=== PATIENT | male | born 1950 ===

== ENCOUNTER 2017-04-25 11:34 | Inpatient (IN) | payer BC, MEDICARE ==
[2017-04-25] MEDS ORDERED: Ticagrelor* 90 MG TAB PO ONE ×2 (11:38→13:11)
[2017-04-25] MEDS ORDERED: Heparin VIAL(*) 5000 UNITS/ML VIAL (FIVE THOUSAND) ONE (11:39)
[2017-04-25] MEDS ORDERED: Heparin for STEMI(*) 5,000 UNITS/ML 1 ML VIAL IV ONE (11:42)
[2017-04-25] MEDS ORDERED: Morphine INJ* 4 MG/ML 1 ML SYRINGE IV ONE (11:46)
[2017-04-25] MEDS ORDERED: Morphine INJ* 4 MG/ML 1 ML SYRINGE ONE (11:47)
[2017-04-25 11:52] LABS: Hematocrit 43 % (42-52); Hemoglobin 14.5 g/dl (14.0-18.0); Mean Corpuscular HGB Conc 34 g/dl (31-36); Mean Corpuscular Hemoglobin 31 pg (27-31); Mean Corpuscular Volume 91 fL (80-94); Mean Platelet Volume 10 um3 (7.4-10.4); Red Blood Count 4.71 10^6/ul (4.0-5.4); Red Cell Distribution Width 13 % (10.5-15); White Blood Count 13.3 10^3/ul (3.5-10.8)
[2017-04-25] MEDS ORDERED: Lidocaine 1% INJ* 10 MG/ML 30 ML SDV ONE (12:03)
[2017-04-25] MEDS ORDERED: fentaNYL* 50 MCG/ML 2 ML VIAL (100 MCG VIAL) ONE ×2 (12:03→12:41)
[2017-04-25] MEDS ORDERED: Heparin(*) 1000 UNIT/ML 10 ML VIAL CATH LAB IV ONE (12:03)
[2017-04-25] MEDS ORDERED: VERAPAMIL 2.5 MG/ML 4 ML VIAL ONE (12:03)
[2017-04-25] MEDS ORDERED: Midazolam* 1 MG/ML 5 ML VIAL (5 MG) ONE (12:03)
[2017-04-25] MEDS ORDERED: nitroGLYCERIN DRIP* 250 ML ONE (12:03)
[2017-04-25] MEDS ORDERED: Heparin 2 UNITS/ML IVPREMIX* 2,000 ML IV ONE (12:03)
[2017-04-25] MEDS ORDERED: Iohexol 350 (CONTRAST) 200 ML MDV IV ONE (12:04)
[2017-04-25 12:08] LABS: Albumin 3.8 g/dL (3.2-5.2); BUN/Creatinine Ratio 12.4 (8-20); Calcium 8.4 mg/dL (8.6-10.3); EGFR African American 91.2 (>60); EGFR Non-African American 70.9 (>60); Globulin 2.9 g/dL (2-4); Potassium 3.8 mmol/L (3.5-5.0); Total Bilirubin 0.4 mg/dL (0.2-1.0); Total Protein 6.7 g/dL (6.4-8.9)
[2017-04-25 12:13] LABS: Troponin I 0.03 ng/mL (<0.04)
[2017-04-25 12:15] LABS: Urine Bilirubin Negative (Negative); Urine Glucose 3+(>=500 mg/dL) (Negative); Urine Nitrite Negative (Negative)
--- NOTE | 2017-04-25 12:55 | RAD ---
Indication: Chest pain. Single frontal view of the chest performed at 1147 hours was reviewed. No prior study is available for comparison. No mediastinal shift is noted. Heart is of normal size and configuration. Lung george appear clear. IMPRESSION: NO ACTIVE CARDIOPULMONARY DISEASE IS NOTED.
[2017-04-25] MEDS ORDERED: Nitroglycerin TAB 0.4 MG* 0.4 MG TAB SL PRN (13:25)
[2017-04-25] MEDS ORDERED: oxyCODONE/Acetamin 5/325 MG* TAB PO PRN (13:28)
[2017-04-25] MEDS ORDERED: Acetaminophen TAB* 325 MG PO PRN (13:28)
[2017-04-25] MEDS ORDERED: NS 0.9% 1000 ML* 1,000 ML IV SCH (13:30)
[2017-04-25] MEDS ORDERED: Dextrose 50% Syringe 50 ML* 25 GM/50 ML SYRINGE IV PUSH PRN (15:10)
[2017-04-25] MEDS: Metoprolol Tartrate TAB* 25 MG PO SCH ×2 (15:14→20:03)
--- NOTE | 2017-04-25 16:52 | HP ---
CC: Dr. Carter; Dr. Sylwia Jean HISTORY AND PHYSICAL: DATE OF ADMISSION: 04/25/17 PRIMARY CARE PHYSICIAN: Dr. Carter in [place]. HISTORY OF PRESENT ILLNESS: A 67-year-old diabetic, presenting to the ER with acute inferior wall S T-elevation infarct. He has no previous cardiac history. In retrospect, yesterday, while walking, he had very mild angin a, lasting about 20 minutes. It resolved with rest. Today, at around 10:30 in the morning, he star devi to have severe chest pain with radiation into the left arm accompanied by shortness of breath, h e presented to the ER. EKG at 11:38 hours showed sinus rhythm with acute inferior wall ST-elevation infarct with ST elevation in II, III, and aVF with reciprocal ST depression in aVL, V1 through V2. He underwent emergent catheterization. Risk factors for coronary disease include diabetes, hypertension, and hyperlipidemia. He has a hist ory of GI side effects from Crestor and Lipitor, unknown doses. His A1c last time was 7. PAST MEDICAL HISTORY: Diabetes for 15 years without complications, hypertension, hyperlipidemia. PREHOSPITAL MEDICATIONS: 1. Glipizide 10 mg daily. 2. Metformin 500 mg b.i.d. 3. Lisinopril and hydrochlorothiazide 20/25 daily. 4. Nexium 40 mg daily. 5. Aspirin 81 mg daily. ALLERGIES: ZETIA. FAMILY HISTORY: Positive for coronary disease in his father. SOCIAL HISTORY: He smokes a rare cigar. REVIEW OF SYSTEMS: General: No weight loss. No fever. HEENT: He has seasonal allergies. 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 GI: No history of peptic ulcer disease or bleeding. Circulatory: No cl audication. Remainder all negative. PHYSICAL EXAMINATION GENERAL: When seen in the ER, he was complaining of chest pain, was in moderate distress. VITAL SIGNS: Blood pressure 138/87, heart rate 72, no ectopy. HEENT: Normal without xanthelasma, scleral injection, or jaundice. EOMs normal. Cranial nerves gerard ssly intact. NECK: JVP and carotids normal. No thyromegaly. LUNGS: Clear to percussion and auscultation. CARDIAC: RV and apex not palpable. Normal S1, S2. No gallop, murmur, or rub. ABDOMEN: Soft, nontender. No bruit. Aorta and liver not palpable. Radial, femoral, and pedal pul ses are all palpable. EXTREMITIES: No cyanosis, clubbing, or edema. PSYCH: Appropriately anxious. SKIN: Warm and perfused. DIAGNOSTIC STUDIES/LAB DATA: EKG as above. CBC notable only for elevated white count, sodium 132, potassium 3.8, creatinine 1.05. Blood sugar 320, lactic acid 3.6. BNP normal at 20. First troponin 0.03. LDL high at 158, on no statin. IMPRESSION: 1. Acute inferior wall ST-elevation infarct. He underwent emergent catheterization for his Killip class I infarct. 2. Diabetes, type 2 by history, uncontrolled. 3. Hypertension, medically treated. 4. Dyslipidemia, with a history of questionable statin intolerance and not at target. 5. Allergy to ZETIA. [id number]/[facility] #: [id number]
--- NOTE | 2017-04-25 17:44 | ED ---
Doris Walter Auryana, scribed for Dylan Jacob MD on 04/25/17 at 1141 . HPI Chest Pain - HPI Summary HPI Summary: 67 year old male ARLETHA with chest pain starting at 10:30 AM today just before breakfast. Patient also had dizziness, diaphoresis, and nausea-given Zofran en route. Patient reports that the pain was a 10/10 - now 5/10. He also has left arm pain. Prior to EMS arrival, patient self-administered 4x baby ASA and en route patient also received 2x 4 mg morphine. She denies SOB or any nausea now. PMHx is significant for HTN, DM, and HLD. No history of OR. - History of Current Complaint Chief Complaint: EDChestPainROMI Time Seen by Provider: 04/25/17 11:41 Hx Obtained From: Patient, EMS Onset/Duration: Started Hours Ago, Still Present Time of Onset: 10:30 Timing: Constant Initial Severity: Severe Current Severity: Moderate Pain Intensity: 10 - now 5/10 Pain Scale Used: 0-10 Numeric Chest Pain Location: Diffuse Chest Pain Radiates: Yes Chest Pain Radiates To:: Arm - left arm Alleviating Factor(s): Medication - CIVIL ENGINEERING TECHNICIAN ASA, EMS Tx Associated Signs and Symptoms: Positive: Chest Pain, Dizziness, Diaphoresis, Nausea - now resolved, Other: - left arm pain. Negative: Shortness of Breath Related History: Similar Episode/Dx as: - no history of OR - Allergy/Home Medications Allergies/Adverse Reactions: Allergies Allergy/AdvReac Type Severity Reaction Status Date / Time Ezetimibe [From Zetia] Allergy Diarrhea Verified 04/25/17 11:50 Home Medications: Home Medications Aspirin [Aspirin Adult Low Dose 81 MG] 81 mg PO DAILY 04/25/17 [History Confirmed 04/25/17] Esomeprazole Magnesium [Nexium] 40 mg PO DAILY 04/25/17 [History Confirmed 04/25] Lisinopril/HCTZ 20(NF) [Zestoretic 20(NF)] 1 tab PO DAILY 04/25/17 [ History Confirmed 04/25/17] glipiZIDE TAB* [Glucotrol TAB*] 10 mg PO DAILY 04/25/17 [History Confirmed 04/25] metFORMIN* 500 mg PO BID 04/25/17 [History Confirmed 04/25/17] PMH/Surg Hx/FS Hx/Imm Hx Endocrine/Hematology History: Reports: Hx Diabetes Cardiovascular History: Reports: Hx Hypercholesterolemia, Hx Hypertension Infectious Disease History: Denies: Traveled Outside the [place] in Last 30 Days - Family History Known Family History: Positive: Hypertension, Diabetes - Social History Occupation: Employed Full-time Lives: With Family Hx Substance Use: No Substance Use Type: Reports: None Hx Tobacco Use: No Smoking Status (MU): Never Smoked Tobacco Review of Systems Negative: Fever, Chills Eyes: Negative ENT: Negative Positive: Chest Pain Respiratory: Negative Negative: Shortness Of Breath Gastrointestinal: Negative Positive: Nausea - now resolved Genitourinary: Negative Musculoskeletal: Negative Skin: Negative Neurological: Negative Psychological: Normal All Other Systems Reviewed And Are Negative: Yes Physical Exam - Summary Physical Exam Summary: VITAL SIGNS: Reviewed. GENERAL: Patient is a well-developed and nourished male who is lying comfortable in the stretcher. Patient is not in any acute respiratory distress. HEAD AND FACE: No signs of trauma. No ecchymosis, hematomas or skull depressions. No sinus tenderness. EYES: PERRLA, EOMI x 2, No injected conjunctiva, no nystagmus. EARS: Hearing grossly intact. Ear canals and tympanic membranes are within normal limits. MOUTH: Oropharynx within normal limits. NECK: Supple, trachea is midline, no adenopathy, no JVD, no carotid bruit, no c- spine tenderness, neck with full ROM. CHEST: Symmetric, no tenderness at palpation LUNGS: Clear to auscultation bilaterally. No wheezing or crackles. CVS: Regular rate and rhythm, S1 and S2 present, no murmurs or gallops appreciated. ABDOMEN: Soft, non-tender. No signs of distention. No rebound no guarding, and no masses palpated. Bowel sounds are normal. EXTREMITIES: FROM in all major joints, no edema, no cyanosis or clubbing. NEURO: Alert and oriented x 3. No acute neurological deficits. Speech is normal and follows commands. SKIN: Diaphoretic and clammy. Triage Information Reviewed: Yes Vital Signs On Initial Exam: Initial Vitals Temp Pulse Resp BP Pulse Ox 97.3 F 72 13 138/87 100 04/25/17 11:46 04/25/17 11:46 04/25/17 11:46 04/25/17 11:46 04/25/17 11:46 Vital Signs Reviewed: Yes Diagnostics - Vital Signs Vital Signs Temp Pulse Resp BP Pulse Ox 04/25/17 12:01 80 13 100 04/25/17 12:00 76 12 100 04/25/17 11:55 77 9 135/75 100 04/25/17 11:54 80 11 100 04/25/17 11:50 97.3 F 82 15 136/89 100 04/25/17 11:49 14 04/25/17 11:46 97.3 F 72 13 138/87 100 - Laboratory Lab Results: Lab Results 04/25/17 04/25/17 04/25/17 Range/Units 11:40 11:40 11:40 WBC 13.3 H (3.5-10.8) 10^3/ul RBC 4.71 (4.0-5.4) 10^6/ul Hgb 14.5 (14.0-18.0) g/dl Hct 43 (42-52) % MCV 91 (80-94) fL MCH 31 (27-31) pg MCHC 34 (31-36) g/dl RDW 13 (10.5-15) % Plt Count 214 (150-450) 10^3/ul MPV 10 (7.4-10.4) um3 Neut % (Auto) 80.6 (38-83) % Lymph % (Auto) 10.8 L (25-47) % [place] % (Auto) 7.8 (1-9) % Eos % (Auto) 0.3 (0-6) % Baso % (Auto) 0.5 (0-2) % Absolute Neuts (auto) 10.7 H (1.5-7.7) 10^3/ul Absolute Lymphs (auto) 1.4 (1.0-4.8) 10^3/ul Absolute Monos (auto) 1.0 H (0-0.8) 10^3/ul Absolute Eos (auto) 0 (0-0.6) 10^3/ul Absolute Basos (auto) 0.1 (0-0.2) 10^3/ul Absolute Nucleated RBC 0 10^3/ul Nucleated RBC % 0 INR (Anticoag Therapy) 0.90 (0.89-1.11) APTT 23.8 L (26.0-36.3) seconds Sodium 132 L (133-145) mmol/L Potassium 3.8 (3.5-5.0) mmol/L Chloride 102 (101-111) mmol/L Carbon Dioxide 20 L (22-32) mmol/L Anion Gap 10 (2-11) mmol/L BUN 13 (6-24) mg/dL Creatinine 1.05 (0.67-1.17) mg/dL Est GFR ( Amer) 91.2 (>60) Est GFR (Non-Af Amer) 70.9 (>60) BUN/Creatinine Ratio 12.4 (8-20) Glucose 320 H (70-100) mg/dL Lactic Acid (0.5-2.0) mmol/L Calcium 8.4 L (8.6-10.3) mg/dL Total Bilirubin 0.40 (0.2-1.0) mg/dL AST 41 H (13-39) U/L ALT 39 (7-52) U/L Alkaline Phosphatase 49 (34-104) U/L Total Creatine Kinase 66 (10-223) U/L CK-MB (CK-2) 1.8 (0.6-6.3) ng/mL Myoglobin 26.8 (17.4-105.7) ng/mL Troponin I 0.03 (<0.04) ng/mL B-Natriuretic Peptide ( - 100) pg/mL Total Protein 6.7 (6.4-8.9) g/dL Albumin 3.8 (3.2-5.2) g/dL Globulin 2.9 (2-4) g/dL Albumin/Globulin Ratio 1.3 (1-3) LDL Cholesterol Direct 158 mg/dL Urine Color Urine Appearance Urine pH (5-9) Ur Specific [place] (1.010-1.030) Urine Protein (Negative) Urine Ketones (Negative) Urine Blood (Negative) Urine Nitrate (Negative) Urine Bilirubin (Negative) Urine Urobilinogen (Negative) Ur Leukocyte Esterase (Negative) Urine Glucose (Negative) Blood Type Antibody Screen 04/25/17 04/25/17 04/25/17 Range/Units 11:40 11:40 11:40 WBC (3.5-10.8) 10^3/ul RBC (4.0-5.4) 10^6/ul Hgb (14.0-18.0) g/dl Hct (42-52) % MCV (80-94) fL MCH (27-31) pg MCHC (31-36) g/dl RDW (10.5-15) % Plt Count (150-450) 10^3/ul MPV (7.4-10.4) um3 Neut % (Auto) (38-83) % Lymph % (Auto) (25-47) % [place] % (Auto) (1-9) % Eos % (Auto) (0-6) % Baso % (Auto) (0-2) % Absolute Neuts (auto) (1.5-7.7) 10^3/ul Absolute Lymphs (auto) (1.0-4.8) 10^3/ul Absolute Monos (auto) (0-0.8) 10^3/ul Absolute Eos (auto) (0-0.6) 10^3/ul Absolute Basos (auto) (0-0.2) 10^3/ul Absolute Nucleated RBC 10^3/ul Nucleated RBC % INR (Anticoag Therapy) (0.89-1.11) APTT (26.0-36.3) seconds Sodium (133-145) mmol/L Potassium (3.5-5.0) mmol/L Chloride (101-111) mmol/L Carbon Dioxide (22-32) mmol/L Anion Gap (2-11) mmol/L BUN (6-24) mg/dL Creatinine (0.67-1.17) mg/dL Est GFR ( Amer) (>60) Est GFR (Non-Af Amer) (>60) BUN/Creatinine Ratio (8-20) Glucose (70-100) mg/dL Lactic Acid 3.6 H* (0.5-2.0) mmol/L Calcium (8.6-10.3) mg/dL Total Bilirubin (0.2-1.0) mg/dL AST (13-39) U/L ALT (7-52) U/L Alkaline Phosphatase (34-104) U/L Total Creatine Kinase (10-223) U/L CK-MB (CK-2) (0.6-6.3) ng/mL Myoglobin (17.4-105.7) ng/mL Troponin I (<0.04) ng/mL B-Natriuretic Peptide 20 ( - 100) pg/mL Total Protein (6.4-8.9) g/dL Albumin (3.2-5.2) g/dL Globulin (2-4) g/dL Albumin/Globulin Ratio (1-3) LDL Cholesterol Direct mg/dL Urine Color Urine Appearance Urine pH (5-9) Ur Specific [place] (1.010-1.030) Urine Protein (Negative) Urine Ketones (Negative) Urine Blood (Negative) Urine Nitrate (Negative) Urine Bilirubin (Negative) Urine Urobilinogen (Negative) Ur Leukocyte Esterase (Negative) Urine Glucose (Negative) Blood Type O Positive Antibody Screen Negative 04/25/17 Range/Units 12:02 WBC (3.5-10.8) 10^3/ul RBC (4.0-5.4) 10^6/ul Hgb (14.0-18.0) g/dl Hct (42-52) % MCV (80-94) fL MCH (27-31) pg MCHC (31-36) g/dl RDW (10.5-15) % Plt Count (150-450) 10^3/ul MPV (7.4-10.4) um3 Neut % (Auto) (38-83) % Lymph % (Auto) (25-47) % [place] % (Auto) (1-9) % Eos % (Auto) (0-6) % Baso % (Auto) (0-2) % Absolute Neuts (auto) (1.5-7.7) 10^3/ul Absolute Lymphs (auto) (1.0-4.8) 10^3/ul Absolute Monos (auto) (0-0.8) 10^3/ul Absolute Eos (auto) (0-0.6) 10^3/ul Absolute Basos (auto) (0-0.2) 10^3/ul Absolute Nucleated RBC 10^3/ul Nucleated RBC % INR (Anticoag Therapy) (0.89-1.11) APTT (26.0-36.3) seconds Sodium (133-145) mmol/L Potassium (3.5-5.0) mmol/L Chloride (101-111) mmol/L Carbon Dioxide (22-32) mmol/L Anion Gap (2-11) mmol/L BUN (6-24) mg/dL Creatinine (0.67-1.17) mg/dL Est GFR ( Amer) (>60) Est GFR (Non-Af Amer) (>60) BUN/Creatinine Ratio (8-20) Glucose (70-100) mg/dL Lactic Acid (0.5-2.0) mmol/L Calcium (8.6-10.3) mg/dL Total Bilirubin (0.2-1.0) mg/dL AST (13-39) U/L ALT (7-52) U/L Alkaline Phosphatase (34-104) U/L Total Creatine Kinase (10-223) U/L CK-MB (CK-2) (0.6-6.3) ng/mL Myoglobin (17.4-105.7) ng/mL Troponin I (<0.04) ng/mL B-Natriuretic Peptide ( - 100) pg/mL Total Protein (6.4-8.9) g/dL Albumin (3.2-5.2) g/dL Globulin (2-4) g/dL Albumin/Globulin Ratio (1-3) LDL Cholesterol Direct mg/dL Urine Color Straw Urine Appearance Clear Urine pH 7.0 (5-9) Ur Specific [place] 1.009 L (1.010-1.030) Urine Protein Negative (Negative) Urine Ketones Trace H (Negative) Urine Blood Negative (Negative) Urine Nitrate Negative (Negative) Urine Bilirubin Negative (Negative) Urine Urobilinogen Negative (Negative) Ur Leukocyte Esterase Negative (Negative) Urine Glucose 3+(>=500 mg/dl) H (Negative) Blood Type Antibody Screen Result Diagrams: 04/25/17 11:40 04/25/17 11:40 Lab Statement: Any lab studies that have been ordered have been reviewed, and results considered in the medical decision making process. - Radiology CXR Xray Interpretation: No Acute Changes Radiology Interpretation Completed By: Radiologist - EKG 11:38 EKG Interpretation: ST ELEVATION IN LEADS II,III, and aVf Chest Pain Course/Dx - Course Assessment/Plan: 67 year old male BIBA with chest pain starting at 10:30 AM today just before breakfast. Patient also had dizziness, diaphoresis, and nausea -given Zofran en route. Patient reports that the pain was a 10/10 - now 5/10. He also has left arm pain. Prior to EMS arrival, patient self-administered 4x baby ASA and en route patient also received 2x 4 mg morphine. She denies SOB or any nausea now. PMHx is significant for HTN, DM, and HLD. No history of OR. In the ED course an IV access was obtained. Patient was placed in a sailmaker. Patient was started with IV fluids. He was given an additional dose of Morphine for pain. Labs within normal limits except for WBCs 13.3, NA 132, glucose 320, troponin 0.03. EKG shows an STEMI in leads II, II, aVF. I discussed the case with Dr. 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 Patient was given Heparin. He is hemodynamically stable and A+O x 3. - Chest Pain Differential Diagnosis/HQI/PQRI: Acute OR, ACS, Angina, CHF, Chest Wall, GI Disease, Lower Respiratory Infection - Diagnoses Provider Diagnoses: Myocardial infarction - Critical Care Time Critical Care Time: 30-74 min Discharge - Discharge Plan Condition: Stable Disposition: ADMITTED TO [facility] The documentation as recorded by the Doris worley Auryana accurately reflects the service I personally performed and the decisions made by , Dylan Jacob MD.
[2017-04-25] MEDS: Atorvastatin* 80 MG TAB PO SCH (18:09)
[2017-04-25] MEDS: Insulin LISPRO* 1 UNITS UNIT SUBCUT SCH ×2 (18:10→22:02)
[2017-04-25 18:41] LABS: Troponin I 43.45 ng/mL (<0.04)
[2017-04-25] MEDS: Ticagrelor* 90 MG TAB PO SCH (20:03)
[2017-04-25] MEDS ORDERED: Zolpidem TAB* 5 MG PO PRN (21:00)
[2017-04-25 21:50] LABS: Creatine Kinase 1524 U/L (10-223); Glucose 197 mg/dL (70-100)
[2017-04-25 21:53] LABS: Troponin I > 74.00 ng/mL (<0.04)
--- NOTE | 2017-04-25 23:25 | CONS ---
CC: MICAHEL Emmanuel; Sylwia Jean MD * CONSULTATION REPORT: DATE OF CONSULTATION: 04/25/17 REQUESTING PHYSICIAN: Sylwia Jean MD PRIMARY CARE PHYSICIAN: MICHAEL Emmanuel REASON FOR CONSULT: Diabetes management. CHIEF COMPLAINT: Chest pain. HISTORY OF PRESENT ILLNESS: The patient is a 67-year-old gentleman who says that he went out to breakfast today, had 2 eggs and ham and hash browns, and then started driving home in his truck when he felt what he thought was heartburn. He said it really was like heaviness in the center of his chest. He went home and felt worse. The pain then went to his left arm. He got dizzy. Then, the pain increased to where it felt like an elephant was on his chest and he described it as 50/10 in severity. He had slight nausea. No vomiting. He had some shortness of breath, but he was panting. He really was not sure if it was from anxiety or being short of breath. At home, when he called the EMS, they told him to take 4 baby aspirins and chew them at home. The patient did have pain in his chest until he was brought up to having the cardiac catheterization. He says his sugars at home by the way averaged at 150. PAST MEDICAL HISTORY: Significant for hypertension, GERD, diabetes, and hyperlipidemia. PAST SURGICAL HISTORY: Significant for cholecystectomy in June 2016. ALLERGIES: He has an allergy to ZETIA. CURRENT MEDICATION: At home were: 1. Lisinopril, hydrochlorothiazide 20/25 one tablet daily. 2. Nexium 40 mg daily. 3. Metformin 500 mg twice daily. 4. Aspirin 81 mg daily. 5. Glipizide 10 mg daily. SOCIAL HISTORY: He smokes occasional cigar and a beer a day. No recreational drug use. 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 He is . He has 5 children. His , Elsa Meraz, is his healthcare proxy. FAMILY HISTORY: Mother at 89 of a blockage in her intestines. Father at 67 of diabetes, heart failure. He had an CO at age 65. Five sisters, one of an CO at age 77. REVIEW OF SYSTEMS: A 14-point review of systems was completed with the patient. All pertinent positives and negatives are in the history of present illness, otherwise it is negative. PHYSICAL EXAM: A pleasant gentleman, lying in bed, in no acute distress. Vital Signs: Temperature 98.7 degrees, heart rate 87 beats a minute, respiratory rate 20 breaths a minute, pulse ox 95%, blood pressure 142/121. HEENT: Normocephalic, atraumatic. Pupils are equal, round, and reactive to light. Moist mucous membranes. Neck: Supple. No JVD, bruits, palpable thyroid or lymphadenopathy. Chest: Clear to auscultation and percussion bilaterally. Cardiovascular: S1, S2 appreciated. Regular rate and rhythm. Abdomen: Positive bowel sounds in all 4 quadrants. Soft, nontender, and nondistended. Extremities: No cyanosis, clubbing, or edema. +2 peripheral pulses bilaterally. Neuro: Alert and oriented x3. Moves all extremities. Skin: No rash or abnormalities. DIAGNOSTIC STUDIES/LAB DATA: White count 13.3, hemoglobin 14.5, hematocrit 43, platelets are 214,000. Sodium is 132, potassium 3.8, chloride 102, CO2 20, BUN 13, creatinine 1.05, glucose is 320. Troponin is 0.03. Lactic acid 3.6. CK- MB is . UA, +3 glucose. Chest x-ray shows no active cardiopulmonary disease is noted. EKG shows normal sinus rhythm at 68 beats a minute, left axis deviation, Qs in II, III, and F. Previous EKG when first came in shows ST elevations in II, III , and F with reciprocal changes in V1 through V3. ASSESSMENT AND PLAN: 1. Diabetes mellitus: The patient apparently had a hemoglobin A1c at 7 at home , which is only slightly elevated, but we would like to get it closer to 6. For now, we will place him on fingersticks with sliding scale insulin. He is on metformin 500 twice a day and glipizide 10 daily. I will certainly increase his metformin at home, encourage him to watch his diet and have him follow with his PCP. He has a lot of room to come down and should again be closer to 6 or less. 2. Hypertension: Current blood pressure is somewhat high, but we will monitor before making any adjustments. The patient is currently also on metoprolol. 3. Coronary artery disease: Management as per Cardiology, but currently completely asymptomatic status post stent placement. 4. Hyperlipidemia: The patient admits he has a history of it, but had problems with statins and Zetia. For now, we will try Lipitor and see if he can tolerate it especially in light of his ST-elevation myocardial infarction. 5. DVT prophylaxis: We will recommend heparin as soon as okay by Cardiology. 6. FEN: Heart healthy diet. 7. The patient is a full code. Thank you very much for this consult and we will follow with you closely. TIME SPENT: Over 75 minutes were spent on this consult; more than 40 minutes of which was spent in direct [id number] contact with the patient in evaluation , physical exam, counseling, and coordination of care. [id number]/[facility] #: [id number] [place]
--- NOTE | 2017-04-26 01:13 | CATH ---
CC: Dr. Carter; Dr. Jean STENT REPORT: DATE OF PROCEDURE: 04/25/17 PRIMARY CARE PHYSICIAN: Dr. Carter in [place]. PROCEDURES: 1. Right radial artery access with ultrasound guidance. 2. Bilateral selective coronary cineangiography. 3. Left heart catheterization. 4. Left ventriculography. 5. Stent placement RCA 2.75 x 38 Synergy drug-eluding stent. HISTORY: A 67-year-old diabetic presenting with acute inferior wall ST elevation infarct. PROCEDURE: Access right radial artery sheath 6F Slender. MEDICATIONS: 1. Subcu lidocaine. 2. IV Versed. 3. IV fentanyl. 4. Heparin 3000 units. 5. Verapamil 3 mg. 6. Nitroglycerin 300 mcg IA, heparin 3000 units IV. 7. Brilinta 180 mg p.o. loading dose. DIAGNOSTIC CATHETERS: 5-F TIG4, 4 FL 3.5, 5-F pigtail. There was some spasm in the right radial ar jayy. After the right coronary artery was identified as the culprit, a 6FR 4 guide with a 14 Samurai wire was introduced, easily crossed the occlusion point revealing a lengthy underlying stenosis, which wa s then stented with a 2.75 x 38 Synergy drug- eluding stent deployed at 11 atmospheres 11 seconds, t hen post-dilated with 2 overlapping inflations with a 2.75 x 30 NC balloon to 18 atmospheres. Left coronary angiography, left heart catheterization, LV gram were then performed. HEMODYNAMICS: Initial BP 147/95, LV 108/23, no aortic valve gradient on pullback. ANGIOGRAPHY: Right forearm injection shows only some mild tortuosity and spasm, no stenosis. RCA: The RCA is dominant, moderate, occluded within a few centimeters of the origin, adjacent to a side branch. After drug-eluting stent placement, the RCA has TIMOTEO-3 flow, no residual stenosis, there is filling of the acute marginal branch which supplies a short segment of the distal inferior septum, the PDA i s relatively small, is followed by 2 moderate posterolaterals. The RCA has distal minor luminal irr egularity but no significant stenosis, has TIMOTEO-3 flow with a normal myocardial blush. Left main: Left main is normal in size, has no stenosis. LAD: The LAD is large, extends past the apex, it supplies a small first diagonal, which has minor p roximal irregularity, a [id number] second diagonal with minor proximal irregularity. The LAD has no significant stenosis. Circumflex: The circumflex is not dominant, is relatively small in caliber with a relatively small distribution supplying only a small marginal and a bifurcated relatively small posterolateral. The proximal circumflex has a proximally 25 to 30 mm of diffuse plaquing with up to 70% stenosis. LV gram: Inferior wall motion is normal, estimated LVEF is 55%. CONCLUSION: 1. Two-vessel coronary disease with RCA culprit occlusion, excellent angiographic result with drug- eluting stent placement. 2. He has moderate lengthy circumflex stenosis and a small caliber vessel supplying a relatively sm all amount of myocardium will be accessed during convalescence with an exercise nuclear stress imagi ng study. 3. Normal LV systolic function. 4. Elevated LVDP. 5. Successful right radial artery access. [id number]/[facility] #: [id number]
[2017-04-26] MEDS: Metoprolol Tartrate TAB* 25 MG PO SCH (05:23)
[2017-04-26 05:54] LABS: BUN/Creatinine Ratio 12.1 (8-20); Calcium 8.1 mg/dL (8.6-10.3); EGFR African American 107.5 (>60); EGFR Non-African American 83.6 (>60); Potassium 3.6 mmol/L (3.5-5.0)
[2017-04-26] MEDS: Aspirin Low Dose CHEW TAB* 81 MG PO SCH (08:45)
[2017-04-26] MEDS: Insulin LISPRO* 1 UNITS UNIT SUBCUT SCH ×4 (08:45→21:05)
[2017-04-26] MEDS: Ticagrelor* 90 MG TAB PO SCH ×2 (08:45→21:05)
[2017-04-26] MEDS: Metoprolol Tartrate TAB* 50 mg PO SCH ×2 (08:45→21:05)
[2017-04-26] MEDS: Atorvastatin* 80 MG TAB PO SCH (17:16)
--- NOTE | 2017-04-26 18:23 | PN ---
Subjective Date of Service: 04/26/17 Interval History: Patient feels much better without complaints. Objective Active Medications: Acetaminophen (Tylenol Tab*) 650 mg PO Q4H PRN PRN Reason: HEADACHE/PAIN Aspirin (Aspirin Low Dose Tab*) 81 mg PO DAILY [facility] Last Admin: 04/26/17 08:45 Dose: 81 mg Atorvastatin Calcium (Lipitor*) 80 mg PO 1700 [facility] Last Admin: 04/26/17 17:16 Dose: 80 mg Dextrose (D50w Syringe 50 Ml*) 12.5 gm IV PUSH .FOR FS < 60 - SS PRN PRN Reason: FS < 60 Insulin Human Lispro (Humalog*) 0 units SUBCUT ACHS [facility] PRN Reason: Protocol Last Admin: 04/26/17 17:16 Dose: 2 units Metoprolol Tartrate (Lopressor Tab*) 50 mg PO BID [facility] Last Admin: 04/26/17 08:45 Dose: 50 mg Nitroglycerin (Nitroglycerin Tab 0.4 Mg*) 0.4 mg SL Q5M PRN PRN Reason: ANGINA Oxycodone/Acetaminophen (Percocet 5/325 Tab*) 1 tab PO Q6H PRN PRN Reason: PAIN Last Admin: 04/25/17 20:03 Dose: 1 tab Ticagrelor (Brilinta*) 90 mg PO BID [facility] Last Admin: 04/26/17 08:45 Dose: 90 mg Zolpidem Tartrate (Ambien Tab*) 5 mg PO BEDTIME PRN PRN Reason: SLEEP Last Admin: 04/25/17 22:02 Dose: 5 mg Vital Signs 04/25/17 04/25/17 04/25/17 18:28 19:00 19:10 Temperature 98 F 97.8 F Pulse Rate 65 Respiratory 14 Rate Blood Pressure 125/98 (mmHg) O2 Sat by Pulse 96 Oximetry 04/25/17 04/25/17 04/25/17 19:40 19:41 19:42 Temperature Pulse Rate 59 61 60 Respiratory 12 13 12 Rate Blood Pressure (mmHg) O2 Sat by Pulse 94 92 96 Oximetry 04/25/17 04/25/17 04/25/17 19:43 19:44 19:45 Temperature Pulse Rate 59 58 59 Respiratory 14 10 10 Rate Blood Pressure (mmHg) O2 Sat by Pulse 95 94 94 Oximetry 04/25/17 04/25/1717 19:46 19:47 19:48 Temperature Pulse Rate 59 59 60 Respiratory 14 12 12 Rate Blood Pressure (mmHg) O2 Sat by Pulse 94 94 93 Oximetry 04/25/17 04/25/17 04/25/17 19:49 19:50 19:51 Temperature Pulse Rate 59 68 63 Respiratory 14 18 15 Rate Blood Pressure (mmHg) O2 Sat by Pulse 94 96 97 Oximetry 04/25/17 04/25/17 04/25/17 19:52 19:53 19:54 Temperature Pulse Rate 59 64 61 Respiratory 11 14 14 Rate Blood Pressure (mmHg) O2 Sat by Pulse 96 95 95 Oximetry 04/25/17 04/25/17 04/25/17 19:55 19:56 19:57 Temperature Pulse Rate 60 63 68 Respiratory 12 12 19 Rate Blood Pressure (mmHg) O2 Sat by Pulse 95 96 96 Oximetry 04/25/17 04/25/17 04/25/17 19:58 19:59 20:00 Temperature 97.6 F Pulse Rate 84 76 67 Respiratory 26 18 16 Rate Blood Pressure 126/80 (mmHg) O2 Sat by Pulse 95 98 97 Oximetry 04/25/17 04/25/17 04/25/17 20:01 20:02 20:03 Temperature Pulse Rate 66 62 61 Respiratory 16 14 11 Rate Blood Pressure (mmHg) O2 Sat by Pulse 98 97 98 Oximetry 04/25/17 04/25/17 04/25/17 20:04 20:05 20:06 Temperature Pulse Rate 59 63 64 Respiratory 11 11 15 Rate Blood Pressure (mmHg) O2 Sat by Pulse 96 96 96 Oximetry 04/25/17 04/25/17 04/25/17 20:07 20:08 20:09 Temperature Pulse Rate 65 77 66 Respiratory 14 17 14 Rate Blood Pressure (mmHg) O2 Sat by Pulse 96 95 97 Oximetry 04/25/17 04/25/17 04/25/17 20:10 20:11 20:12 Temperature Pulse Rate 64 62 63 Respiratory 13 12 15 Rate Blood Pressure (mmHg) O2 Sat by Pulse 96 96 95 Oximetry 04/25/17 04/25/17 04/25/17 20:13 20:14 20:15 Temperature Pulse Rate 60 62 64 Respiratory 12 11 14 Rate Blood Pressure 126/79 (mmHg) O2 Sat by Pulse 95 94 96 Oximetry 04/25/17 04/25/1717 20:16 20:17 20:18 Temperature Pulse Rate 68 70 59 Respiratory 17 19 12 Rate Blood Pressure 126/79 (mmHg) O2 Sat by Pulse 95 95 96 Oximetry 04/25/17 04/25/17 04/25/17 20:19 20:20 20:21 Temperature Pulse Rate 66 64 64 Respiratory 18 14 15 Rate Blood Pressure (mmHg) O2 Sat by Pulse 95 97 98 Oximetry 04/25/17 04/25/17 04/25/17 20:22 20:23 20:24 Temperature Pulse Rate 66 57 65 Respiratory 14 9 15 Rate Blood Pressure 120/81 (mmHg) O2 Sat by Pulse 97 95 95 Oximetry 04/25/17 04/25/17 04/25/17 20:25 20:26 20:28 Temperature Pulse Rate 59 59 61 Respiratory 11 12 10 Rate Blood Pressure 121/80 (mmHg) O2 Sat by Pulse 95 93 93 Oximetry 04/25/17 04/25/17 04/25/17 20:29 20:30 20:31 Temperature Pulse Rate 59 59 60 Respiratory 12 12 12 Rate Blood Pressure (mmHg) O2 Sat by Pulse 92 92 91 Oximetry 04/25/17 04/25/17 04/25/17 20:32 20:33 20:34 Temperature Pulse Rate 61 58 62 Respiratory 12 6 11 Rate Blood Pressure (mmHg) O2 Sat by Pulse 92 94 93 Oximetry 04/25/17 04/25/17 04/25/17 20:35 20:36 20:37 Temperature Pulse Rate 61 57 60 Respiratory 11 10 13 Rate Blood Pressure (mmHg) O2 Sat by Pulse 93 95 93 Oximetry 04/25/17 04/25/17 04/25/17 20:38 20:39 20:40 Temperature Pulse Rate 63 60 57 Respiratory 10 10 11 Rate Blood Pressure (mmHg) O2 Sat by Pulse 93 94 94 Oximetry 04/25/17 04/25/17 04/25/17 20:41 20:42 20:43 Temperature Pulse Rate 58 58 60 Respiratory 12 11 11 Rate Blood Pressure (mmHg) O2 Sat by Pulse 92 92 93 Oximetry 04/25/17 04/25/17 04/25/17 20:44 20:45 20:46 Temperature Pulse Rate 61 57 59 Respiratory 13 14 14 Rate Blood Pressure (mmHg) O2 Sat by Pulse 92 92 91 Oximetry 04/25/17 04/25/17 04/25/17 20:47 20:48 20:49 Temperature Pulse Rate 59 59 64 Respiratory 14 15 19 Rate Blood Pressure 126/79 (mmHg) O2 Sat by Pulse 92 91 90 Oximetry 04/25/17 04/25/17 04/25/17 20:50 20:51 20:52 Temperature Pulse Rate 72 60 59 Respiratory 19 12 11 Rate Blood Pressure (mmHg) O2 Sat by Pulse 95 96 96 Oximetry 04/25/17 04/25/17 04/25/17 20:53 20:54 20:55 Temperature Pulse Rate 62 58 57 Respiratory 14 10 12 Rate Blood Pressure (mmHg) O2 Sat by Pulse 96 95 93 Oximetry 04/25/17 04/25/17 04/25/17 20:56 20:57 20:58 Temperature Pulse Rate 60 59 58 Respiratory 13 12 12 Rate Blood Pressure (mmHg) O2 Sat by Pulse 92 92 92 Oximetry 04/25/17 04/25/17 04/25/17 20:59 21:00 21:01 Temperature Pulse Rate 59 61 59 Respiratory 15 12 11 Rate Blood Pressure 123/75 (mmHg) O2 Sat by Pulse 91 92 92 Oximetry 04/25/17 04/25/17 04/25/17 21:02 21:03 21:04 Temperature Pulse Rate 57 57 58 Respiratory 12 12 15 Rate Blood Pressure (mmHg) O2 Sat by Pulse 93 94 92 Oximetry 04/25/17 04/25/17 04/25/17 21:05 21:06 21:07 Temperature Pulse Rate 59 59 60 Respiratory 15 11 12 Rate Blood Pressure (mmHg) O2 Sat by Pulse 91 91 91 Oximetry 04/25/17 04/25/17 04/25/17 21:08 21:09 21:10 Temperature Pulse Rate 59 60 60 Respiratory 12 14 13 Rate Blood Pressure (mmHg) O2 Sat by Pulse 91 90 90 Oximetry 04/25/17 04/25/17 04/25/17 21:11 21:12 21:13 Temperature Pulse Rate 61 59 59 Respiratory 14 13 14 Rate Blood Pressure (mmHg) O2 Sat by Pulse 90 90 91 Oximetry 04/25/17 04/25/17 04/25/17 21:14 21:15 21:16 Temperature Pulse Rate 60 60 61 Respiratory 13 13 14 Rate Blood Pressure (mmHg) O2 Sat by Pulse 91 91 91 Oximetry 04/25/17 04/25/17 04/25/17 21:17 21:18 21:19 Temperature Pulse Rate 59 59 60 Respiratory 11 13 15 Rate Blood Pressure (mmHg) O2 Sat by Pulse 93 92 91 Oximetry 04/25/17 04/25/17 04/25/17 21:20 21:21 21:22 Temperature Pulse Rate 60 62 61 Respiratory 13 14 13 Rate Blood Pressure (mmHg) O2 Sat by Pulse 91 91 91 Oximetry 04/25/17 04/25/17 04/25/17 21:23 21:34 22:50 Temperature Pulse Rate 70 57 Respiratory 15 18 13 Rate Blood Pressure (mmHg) O2 Sat by Pulse 93 93 Oximetry 04/25/17 04/25/17 04/25/17 22:51 22:52 22:53 Temperature Pulse Rate 58 58 59 Respiratory 14 12 15 Rate Blood Pressure (mmHg) O2 Sat by Pulse 92 93 91 Oximetry 04/25/17 04/25/17 04/25/17 22:54 22:55 22:56 Temperature Pulse Rate 58 58 59 Respiratory 15 14 15 Rate Blood Pressure (mmHg) O2 Sat by Pulse 91 91 91 Oximetry 04/25/17 04/25/17 04/25/17 22:57 22:58 22:59 Temperature Pulse Rate 59 59 59 Respiratory 15 14 15 Rate Blood Pressure (mmHg) O2 Sat by Pulse 91 91 91 Oximetry 04/25/17 04/25/17 04/25/17 23:00 23:01 23:02 Temperature Pulse Rate 59 59 Respiratory 18 15 15 Rate Blood Pressure 121/73 (mmHg) O2 Sat by Pulse 92 91 Oximetry 04/25/17 04/25/17 04/25/17 23:03 23:04 23:05 Temperature Pulse Rate 57 58 59 Respiratory 15 15 15 Rate Blood Pressure (mmHg) O2 Sat by Pulse 92 91 91 Oximetry 04/25/17 04/25/17 04/25/17 23:06 23:07 23:08 Temperature Pulse Rate 60 58 57 Respiratory 14 14 14 Rate Blood Pressure (mmHg) O2 Sat by Pulse 91 92 92 Oximetry 04/25/17 04/25/17 04/25/17 23:09 23:10 23:11 Temperature Pulse Rate 58 59 59 Respiratory 13 13 13 Rate Blood Pressure (mmHg) O2 Sat by Pulse 91 91 92 Oximetry 04/25/17 04/25/17 04/25/17 23:12 23:13 23:14 Temperature Pulse Rate 59 59 60 Respiratory 14 14 14 Rate Blood Pressure (mmHg) O2 Sat by Pulse 91 91 91 Oximetry 04/25/17 04/25/17 04/25/17 23:15 23:16 23:17 Temperature Pulse Rate 59 59 59 Respiratory 14 14 13 Rate Blood Pressure (mmHg) O2 Sat by Pulse 92 91 91 Oximetry 04/25/17 04/25/17 04/25/17 23:18 23:19 23:20 Temperature Pulse Rate 60 59 59 Respiratory 13 13 14 Rate Blood Pressure (mmHg) O2 Sat by Pulse 91 91 91 Oximetry 04/25/17 04/25/17 04/25/17 23:21 23:22 23:23 Temperature Pulse Rate 60 60 61 Respiratory 13 14 14 Rate Blood Pressure (mmHg) O2 Sat by Pulse 91 91 91 Oximetry 04/25/17 04/25/17 04/25/17 23:24 23:25 23:26 Temperature Pulse Rate 59 61 59 Respiratory 13 15 13 Rate Blood Pressure (mmHg) O2 Sat by Pulse 91 91 92 Oximetry 04/25/17 04/25/17 04/25/17 23:27 23:28 23:29 Temperature Pulse Rate 60 60 59 Respiratory 13 14 14 Rate Blood Pressure (mmHg) O2 Sat by Pulse 92 92 92 Oximetry 04/25/17 04/25/17 04/25/17 23:30 23:31 23:32 Temperature Pulse Rate 59 59 59 Respiratory 14 13 13 Rate Blood Pressure (mmHg) O2 Sat by Pulse 92 92 92 Oximetry 04/25/17 04/25/17 04/25/17 23:33 23:34 23:35 Temperature Pulse Rate 59 59 59 Respiratory 13 13 13 Rate Blood Pressure (mmHg) O2 Sat by Pulse 92 91 92 Oximetry 04/25/17 04/25/17 04/25/17 23:36 23:37 23:38 Temperature Pulse Rate 59 71 65 Respiratory 13 15 14 Rate Blood Pressure (mmHg) O2 Sat by Pulse 92 92 94 Oximetry 04/25/17 04/26/17 04/26/17 23:53 01:00 01:34 Temperature 97.9 F Pulse Rate 57 Respiratory 12 13 Rate Blood Pressure (mmHg) O2 Sat by Pulse 92 Oximetry 04/26/17 04/26/17 04/26/17 01:35 01:36 01:37 Temperature Pulse Rate 57 56 57 Respiratory 12 13 13 Rate Blood Pressure (mmHg) O2 Sat by Pulse 92 92 92 Oximetry 04/26/17 04/26/17 04/26/17 01:38 01:39 01:40 Temperature Pulse Rate 56 56 55 Respiratory 14 13 14 Rate Blood Pressure (mmHg) O2 Sat by Pulse 93 92 92 Oximetry 04/26/17 04/26/17 04/26/17 01:41 01:42 01:43 Temperature Pulse Rate 55 55 54 Respiratory 14 14 13 Rate Blood Pressure (mmHg) O2 Sat by Pulse 94 92 92 Oximetry 04/26/17 04/26/17 04/26/17 01:44 01:45 01:46 Temperature Pulse Rate 55 57 70 Respiratory 14 14 13 Rate Blood Pressure (mmHg) O2 Sat by Pulse 93 92 93 Oximetry 04/26/17 04/26/17 04/26/17 01:47 01:48 01:49 Temperature Pulse Rate 53 54 55 Respiratory 14 15 15 Rate Blood Pressure (mmHg) O2 Sat by Pulse 93 92 93 Oximetry 04/26/17 04/26/17 04/26/17 01:50 01:51 01:52 Temperature Pulse Rate 55 61 75 Respiratory 15 15 20 Rate Blood Pressure (mmHg) O2 Sat by Pulse 92 93 98 Oximetry 04/26/17 04/26/17 04/26/17 01:53 01:54 01:55 Temperature Pulse Rate 68 70 74 Respiratory 13 18 17 Rate Blood Pressure (mmHg) O2 Sat by Pulse 97 96 96 Oximetry 04/26/17 04/26/17 04/26/17 01:56 01:57 01:58 Temperature Pulse Rate 59 58 63 Respiratory 13 13 14 Rate Blood Pressure (mmHg) O2 Sat by Pulse 96 95 93 Oximetry 04/26/17 04/26/17 04/26/17 01:59 02:00 02:01 Temperature Pulse Rate 62 61 63 Respiratory 15 14 15 Rate Blood Pressure 117/77 (mmHg) O2 Sat by Pulse 90 90 91 Oximetry 04/26/17 04/26/17 04/26/17 02:02 02:03 02:04 Temperature Pulse Rate 61 56 59 Respiratory 15 13 15 Rate Blood Pressure (mmHg) O2 Sat by Pulse 92 93 95 Oximetry 04/26/17 04/26/17 04/26/17 02:05 02:06 02:07 Temperature Pulse Rate 57 55 56 Respiratory 14 15 10 Rate Blood Pressure (mmHg) O2 Sat by Pulse 94 92 95 Oximetry 04/26/17 04/26/17 04/26/17 02:08 02:09 02:10 Temperature Pulse Rate 54 58 54 Respiratory 11 10 11 Rate Blood Pressure (mmHg) O2 Sat by Pulse 96 96 95 Oximetry 04/26/17 04/26/17 04/26/17 02:11 02:12 02:13 Temperature Pulse Rate 72 53 58 Respiratory 16 10 13 Rate Blood Pressure (mmHg) O2 Sat by Pulse 95 97 95 Oximetry 04/26/17 04/26/17 04/26/17 02:14 02:15 02:16 Temperature Pulse Rate 62 61 60 Respiratory 14 13 14 Rate Blood Pressure (mmHg) O2 Sat by Pulse 93 92 92 Oximetry 04/26/17 04/26/17 04/26/17 02:17 02:18 02:19 Temperature Pulse Rate 64 60 57 Respiratory 14 12 10 Rate Blood Pressure (mmHg) O2 Sat by Pulse 93 93 95 Oximetry 04/26/17 04/26/17 04/26/17 02:20 02:21 02:22 Temperature Pulse Rate 58 57 78 Respiratory 12 10 17 Rate Blood Pressure (mmHg) O2 Sat by Pulse 94 94 96 Oximetry 04/26/17 04/26/17 04/26/17 02:24 02:58 02:59 Temperature Pulse Rate 56 54 Respiratory 12 12 12 Rate Blood Pressure (mmHg) O2 Sat by Pulse 93 94 Oximetry 04/26/17 04/26/17 04/26/17 03:00 03:01 03:02 Temperature Pulse Rate 57 54 56 Respiratory 10 12 12 Rate Blood Pressure 116/76 (mmHg) O2 Sat by Pulse 94 94 93 Oximetry 04/26/17 04/26/17 04/26/17 03:03 03:04 03:05 Temperature Pulse Rate 55 57 55 Respiratory 10 10 13 Rate Blood Pressure (mmHg) O2 Sat by Pulse 94 93 93 Oximetry 04/26/17 04/26/17 04/26/17 03:06 03:07 03:08 Temperature Pulse Rate 55 57 57 Respiratory 13 14 15 Rate Blood Pressure (mmHg) O2 Sat by Pulse 92 92 91 Oximetry 04/26/17 04/26/17 04/26/17 03:09 03:10 03:11 Temperature Pulse Rate 56 58 58 Respiratory 14 14 13 Rate Blood Pressure (mmHg) O2 Sat by Pulse 91 91 92 Oximetry 04/26/17 04/26/17 04/26/17 03:12 03:13 03:14 Temperature Pulse Rate 57 57 57 Respiratory 14 15 15 Rate Blood Pressure (mmHg) O2 Sat by Pulse 92 91 91 Oximetry 04/26/17 04/26/17 04/26/17 03:15 03:16 03:17 Temperature Pulse Rate 57 57 57 Respiratory 14 14 14 Rate Blood Pressure (mmHg) O2 Sat by Pulse 91 91 91 Oximetry 04/26/17 04/26/17 04/26/17 03:18 03:19 03:20 Temperature Pulse Rate 57 57 58 Respiratory 14 15 15 Rate Blood Pressure (mmHg) O2 Sat by Pulse 91 91 91 Oximetry 04/26/17 04/26/17 04/26/17 03:21 03:22 03:23 Temperature Pulse Rate 58 58 59 Respiratory 15 15 14 Rate Blood Pressure (mmHg) O2 Sat by Pulse 91 91 91 Oximetry 04/26/17 04/26/17 04/26/17 03:24 03:25 03:26 Temperature Pulse Rate 59 58 59 Respiratory 15 15 14 Rate Blood Pressure (mmHg) O2 Sat by Pulse 90 91 90 Oximetry 04/26/17 04/26/17 04/26/17 03:27 03:28 03:29 Temperature Pulse Rate 58 59 58 Respiratory 15 14 13 Rate Blood Pressure (mmHg) O2 Sat by Pulse 91 90 91 Oximetry 04/26/17 04/26/17 04/26/17 03:30 03:31 03:32 Temperature Pulse Rate 58 58 58 Respiratory 13 14 14 Rate Blood Pressure (mmHg) O2 Sat by Pulse 92 92 92 Oximetry 04/26/17 04/26/17 04/26/17 03:33 03:34 03:35 Temperature Pulse Rate 59 60 59 Respiratory 14 14 14 Rate Blood Pressure (mmHg) O2 Sat by Pulse 92 91 91 Oximetry 04/26/17 04/26/17 04/26/17 03:36 03:37 03:38 Temperature Pulse Rate 59 60 59 Respiratory 14 14 14 Rate Blood Pressure (mmHg) O2 Sat by Pulse 91 91 91 Oximetry 04/26/17 04/26/17 04/26/17 03:39 03:40 03:41 Temperature Pulse Rate 58 59 58 Respiratory 14 14 15 Rate Blood Pressure (mmHg) O2 Sat by Pulse 91 92 91 Oximetry 04/26/17 04/26/17 04/26/17 03:42 03:43 03:44 Temperature Pulse Rate 59 60 68 Respiratory 14 14 16 Rate Blood Pressure (mmHg) O2 Sat by Pulse 90 91 91 Oximetry 04/26/17 04/26/17 04/26/17 03:45 03:46 04:00 Temperature 98.2 F Pulse Rate 68 58 57 Respiratory 17 13 14 Rate Blood Pressure 113/70 (mmHg) O2 Sat by Pulse 94 92 92 Oximetry 04/26/17 04/26/17 04/26/17 05:00 05:26 06:00 Temperature Pulse Rate 59 59 Respiratory 12 15 11 Rate Blood Pressure 100/68 114/73 (mmHg) O2 Sat by Pulse 93 95 Oximetry 04/26/17 04/26/17 04/26/17 07:00 08:00 09:00 Temperature 97.8 F Pulse Rate 53 54 72 Respiratory 11 11 24 Rate Blood Pressure 111/74 116/73 124/79 (mmHg) O2 Sat by Pulse 93 93 95 Oximetry 04/26/17 04/26/17 04/26/17 10:00 11:45 16:05 Temperature 98.9 F 98.5 F Pulse Rate Respiratory 16 Rate Blood Pressure 121/71 (mmHg) O2 Sat by Pulse Oximetry Appearance: WD/WN gentleman sitting up in bed in NAD Eyes: No Scleral Icterus Ears/Nose/Mouth/Throat: Clear Oropharnyx Neck: No Thyroid Enlargement, Masses Respiratory: Clear to Auscultation Cardiovascular: - - S1S2 manuel Abdominal: NL Sounds; No Tenderness; No Distention, No Hepatosplenomegaly Lymphatic: No Cervical Adenopathy Extremities: No Clubbing, Cyanosis Skin: No Rash or Ulcers Neurological: Alert and Oriented x 3 Result Diagrams: 04/25/17 11:40 04/26/17 05:15 Additional Lab and Data: Lab Results 04/25/17 04/25/17 04/25/17 Range/Units 11:40 11:40 11:40 WBC 13.3 H (3.5-10.8) 10^3/ul RBC 4.71 (4.0-5.4) 10^6/ul Hgb 14.5 (14.0-18.0) g/dl Hct 43 (42-52) % MCV 91 (80-94) fL MCH 31 (27-31) pg MCHC 34 (31-36) g/dl RDW 13 (10.5-15) % Plt Count 214 (150-450) 10^3/ul MPV 10 (7.4-10.4) um3 Neut % (Auto) 80.6 (38-83) % Lymph % (Auto) 10.8 L (25-47) % [place] % (Auto) 7.8 (1-9) % Eos % (Auto) 0.3 (0-6) % Baso % (Auto) 0.5 (0-2) % Absolute Neuts (auto) 10.7 H (1.5-7.7) 10^3/ul Absolute Lymphs (auto) 1.4 (1.0-4.8) 10^3/ul Absolute Monos (auto) 1.0 H (0-0.8) 10^3/ul Absolute Eos (auto) 0 (0-0.6) 10^3/ul Absolute Basos (auto) 0.1 (0-0.2) 10^3/ul Absolute Nucleated RBC 0 10^3/ul Nucleated RBC % 0 INR (Anticoag Therapy) 0.90 (0.89-1.11) APTT 23.8 L (26.0-36.3) seconds Sodium 132 L (133-145) mmol/L Potassium 3.8 (3.5-5.0) mmol/L Chloride 102 (101-111) mmol/L Carbon Dioxide 20 L (22-32) mmol/L Anion Gap 10 (2-11) mmol/L BUN 13 (6-24) mg/dL Creatinine 1.05 (0.67-1.17) mg/dL Est GFR ( Amer) 91.2 (>60) Est GFR (Non-Af Amer) 70.9 (>60) BUN/Creatinine Ratio 12.4 (8-20) Glucose 320 H (70-100) mg/dL Lactic Acid (0.5-2.0) mmol/L Calcium 8.4 L (8.6-10.3) mg/dL Total Bilirubin 0.40 (0.2-1.0) mg/dL AST 41 H (13-39) U/L ALT 39 (7-52) U/L Alkaline Phosphatase 49 (34-104) U/L Total Creatine Kinase 66 (10-223) U/L CK-MB (CK-2) 1.8 (0.6-6.3) ng/mL Myoglobin 26.8 (17.4-105.7) ng/mL Troponin I 0.03 (<0.04) ng/mL B-Natriuretic Peptide ( - 100) pg/mL Total Protein 6.7 (6.4-8.9) g/dL Albumin 3.8 (3.2-5.2) g/dL Globulin 2.9 (2-4) g/dL Albumin/Globulin Ratio 1.3 (1-3) LDL Cholesterol Direct 158 mg/dL Urine Color Urine Appearance Urine pH (5-9) Ur Specific Faith (1.010-1.030) Urine Protein (Negative) Urine Ketones (Negative) Urine Blood (Negative) Urine Nitrate (Negative) Urine Bilirubin (Negative) Urine Urobilinogen (Negative) Ur Leukocyte Esterase (Negative) Urine Glucose (Negative) Blood Type Antibody Screen 04/25/17 04/25/17 04/25/17 Range/Units 11:40 11:40 11:40 WBC (3.5-10.8) 10^3/ul RBC (4.0-5.4) 10^6/ul Hgb (14.0-18.0) g/dl Hct (42-52) % MCV (80-94) fL MCH (27-31) pg MCHC (31-36) g/dl RDW (10.5-15) % Plt Count (150-450) 10^3/ul MPV (7.4-10.4) um3 Neut % (Auto) (38-83) % Lymph % (Auto) (25-47) % [place] % (Auto) (1-9) % Eos % (Auto) (0-6) % Baso % (Auto) (0-2) % Absolute Neuts (auto) (1.5-7.7) 10^3/ul Absolute Lymphs (auto) (1.0-4.8) 10^3/ul Absolute Monos (auto) (0-0.8) 10^3/ul Absolute Eos (auto) (0-0.6) 10^3/ul Absolute Basos (auto) (0-0.2) 10^3/ul Absolute Nucleated RBC 10^3/ul Nucleated RBC % INR (Anticoag Therapy) (0.89-1.11) APTT (26.0-36.3) seconds Sodium (133-145) mmol/L Potassium (3.5-5.0) mmol/L Chloride (101-111) mmol/L Carbon Dioxide (22-32) mmol/L Anion Gap (2-11) mmol/L BUN (6-24) mg/dL Creatinine (0.67-1.17) mg/dL Est GFR ( Amer) (>60) Est GFR (Non-Af Amer) (>60) BUN/Creatinine Ratio (8-20) Glucose (70-100) mg/dL Lactic Acid 3.6 H* (0.5-2.0) mmol/L Calcium (8.6-10.3) mg/dL Total Bilirubin (0.2-1.0) mg/dL AST (13-39) U/L ALT (7-52) U/L Alkaline Phosphatase (34-104) U/L Total Creatine Kinase (10-223) U/L CK-MB (CK-2) (0.6-6.3) ng/mL Myoglobin (17.4-105.7) ng/mL Troponin I (<0.04) ng/mL B-Natriuretic Peptide 20 ( - 100) pg/mL Total Protein (6.4-8.9) g/dL Albumin (3.2-5.2) g/dL Globulin (2-4) g/dL Albumin/Globulin Ratio (1-3) LDL Cholesterol Direct mg/dL Urine Color Urine Appearance Urine pH (5-9) Ur Specific Faith (1.010-1.030) Urine Protein (Negative) Urine Ketones (Negative) Urine Blood (Negative) Urine Nitrate (Negative) Urine Bilirubin (Negative) Urine Urobilinogen (Negative) Ur Leukocyte Esterase (Negative) Urine Glucose (Negative) Blood Type O Positive Antibody Screen Negative 04/25/17 Range/Units 12:02 WBC (3.5-10.8) 10^3/ul RBC (4.0-5.4) 10^6/ul Hgb (14.0-18.0) g/dl Hct (42-52) % MCV (80-94) fL MCH (27-31) pg MCHC (31-36) g/dl RDW (10.5-15) % Plt Count (150-450) 10^3/ul MPV (7.4-10.4) um3 Neut % (Auto) (38-83) % Lymph % (Auto) (25-47) % [place] % (Auto) (1-9) % Eos % (Auto) (0-6) % Baso % (Auto) (0-2) % Absolute Neuts (auto) (1.5-7.7) 10^3/ul Absolute Lymphs (auto) (1.0-4.8) 10^3/ul Absolute Monos (auto) (0-0.8) 10^3/ul Absolute Eos (auto) (0-0.6) 10^3/ul Absolute Basos (auto) (0-0.2) 10^3/ul Absolute Nucleated RBC 10^3/ul Nucleated RBC % INR (Anticoag Therapy) (0.89-1.11) APTT (26.0-36.3) seconds Sodium (133-145) mmol/L Potassium (3.5-5.0) mmol/L Chloride (101-111) mmol/L Carbon Dioxide (22-32) mmol/L Anion Gap (2-11) mmol/L BUN (6-24) mg/dL Creatinine (0.67-1.17) mg/dL Est GFR ( Amer) (>60) Est GFR (Non-Af Amer) (>60) BUN/Creatinine Ratio (8-20) Glucose (70-100) mg/dL Lactic Acid (0.5-2.0) mmol/L Calcium (8.6-10.3) mg/dL Total Bilirubin (0.2-1.0) mg/dL AST (13-39) U/L ALT (7-52) U/L Alkaline Phosphatase (34-104) U/L Total Creatine Kinase (10-223) U/L CK-MB (CK-2) (0.6-6.3) ng/mL Myoglobin (17.4-105.7) ng/mL Troponin I (<0.04) ng/mL B-Natriuretic Peptide ( - 100) pg/mL Total Protein (6.4-8.9) g/dL Albumin (3.2-5.2) g/dL Globulin (2-4) g/dL Albumin/Globulin Ratio (1-3) LDL Cholesterol Direct mg/dL Urine Color Straw Urine Appearance Clear Urine pH 7.0 (5-9) Ur Specific [place] 1.009 L (1.010-1.030) Urine Protein Negative (Negative) Urine Ketones Trace H (Negative) Urine Blood Negative (Negative) Urine Nitrate Negative (Negative) Urine Bilirubin Negative (Negative) Urine Urobilinogen Negative (Negative) Ur Leukocyte Esterase Negative (Negative) Urine Glucose 3+(>=500 mg/dl) H (Negative) Blood Type Antibody Screen Assess/Plan/Problems-Billing Assessment: 67 year s/p STEMI and stent placement and history of Diabetes and hyperlipidema - Patient Problems (1) STEMI (ST elevation myocardial infarction) Current Visit: Yes Status: Acute Code(s): I21.3 - ST ELEVATION (STEMI) MYOCARDIAL INFARCTION OF [facility] SITE SNOMED Code(s): 978976034 Comment: Doing well s/p cath and AGNES in RCA. On Brilinta, Lipitor, ASA and Metoprolol. (2) Diabetes Current Visit: Yes Status: Acute Code(s): E11.9 - TYPE 2 DIABETES MELLITUS WITHOUT COMPLICATIONS SNOMED Code(s): 58133309 Comment: FS a little higher than I would like. may adjust SSI. Issue will be on DC. WOuld like Hgb A1c to be closer to 6. Suggested increasing Metformin but he says he would not tolerate with combination of Lipitor because of GI issues. may need to consider Lantus or Januvia. Will discuss further with patient. (3) Hypertension Current Visit: Yes Status: Acute Code(s): I10 - ESSENTIAL (PRIMARY) HYPERTENSION SNOMED Code(s): 74641252 Comment: Excellent control. No change in rx. (4) Hyperlipidemia Current Visit: Yes Status: Acute Code(s): E78.5 - HYPERLIPIDEMIA, UNSPECIFIED SNOMED Code(s): 31410692 Comment: History of adverse GI consequences from Statins. May consider Niacin if he does not tolerate Lipitor again. (5) DVT prophylaxis Current Visit: Yes Status: Acute Code(s): [id number] - SNOMED Code(s): 596568469 Comment: Start heparin sub q when OK with cardiology (6) Full code status Current Visit: Yes Status: Acute Code(s): Z78.9 - OTHER SPECIFIED HEALTH STATUS SNOMED Code(s): 971261165
[2017-04-27] MEDS: Ticagrelor* 90 MG TAB PO SCH ×2 (08:17→21:42)
[2017-04-27] MEDS: Metoprolol Tartrate TAB* 50 mg PO SCH ×2 (08:17→21:41)
[2017-04-27] MEDS: Aspirin Low Dose CHEW TAB* 81 MG PO SCH (08:18)
--- NOTE | 2017-04-27 08:51 | PN ---
Subjective Date of Service: 04/27/17 Interval History: Patient feels well today without any complaints. Objective Active Medications: Acetaminophen (Tylenol Tab*) 650 mg PO Q4H PRN PRN Reason: HEADACHE/PAIN Aspirin (Aspirin Low Dose Tab*) 81 mg PO DAILY [facility] Last Admin: 04/27/17 08:18 Dose: 81 mg Atorvastatin Calcium (Lipitor*) 80 mg PO 1700 [facility] Last Admin: 04/26/17 17:16 Dose: 80 mg Dextrose (D50w Syringe 50 Ml*) 12.5 gm IV PUSH .FOR FS < 60 - SS PRN PRN Reason: FS < 60 Insulin Human Lispro (Humalog*) 0 units SUBCUT ACHS [facility] PRN Reason: Protocol Last Admin: 04/26/17 21:05 Dose: 2 units Metoprolol Tartrate (Lopressor Tab*) 50 mg PO BID [facility] Last Admin: 04/27/17 08:17 Dose: 50 mg Nitroglycerin (Nitroglycerin Tab 0.4 Mg*) 0.4 mg SL Q5M PRN PRN Reason: ANGINA Oxycodone/Acetaminophen (Percocet 5/325 Tab*) 1 tab PO Q6H PRN PRN Reason: PAIN Last Admin: 04/25/17 20:03 Dose: 1 tab Ticagrelor (Brilinta*) 90 mg PO BID [facility] Last Admin: 04/27/17 08:17 Dose: 90 mg Zolpidem Tartrate (Ambien Tab*) 5 mg PO BEDTIME PRN PRN Reason: SLEEP Last Admin: 04/25/17 22:02 Dose: 5 mg Vital Signs 04/26/17 04/26/17 04/26/17 09:00 10:00 11:35 Temperature Pulse Rate 72 64 Respiratory 24 16 Rate Blood Pressure 124/79 121/71 (mmHg) O2 Sat by Pulse 95 96 Oximetry 04/26/17 04/26/17 04/26/17 11:45 11:54 12:00 Temperature 98.9 F Pulse Rate 60 62 Respiratory Rate Blood Pressure (mmHg) O2 Sat by Pulse 97 97 Oximetry 04/26/17 04/26/17 04/26/17 16:05 20:00 20:59 Temperature 98.5 F Pulse Rate Respiratory 17 Rate Blood Pressure 117/103 (mmHg) O2 Sat by Pulse Oximetry 04/26/17 04/26/17 04/26/17 21:09 21:50 23:27 Temperature 99.6 F Pulse Rate Respiratory Rate Blood Pressure 117/103 116/77 (mmHg) O2 Sat by Pulse Oximetry 04/27/17 04/27/17 04/27/17 03:57 07:49 07:50 Temperature 97.9 F 98.6 F Pulse Rate Respiratory 16 Rate Blood Pressure (mmHg) O2 Sat by Pulse Oximetry Oxygen Devices in Use Now: Nasal Cannula Appearance: WD/WN gentleman sitting up in bed in NAD Eyes: No Scleral Icterus Ears/Nose/Mouth/Throat: Clear Oropharnyx Neck: No Thyroid Enlargement, Masses Respiratory: Clear to Auscultation Cardiovascular: - - S1S2 manuel Abdominal: NL Sounds; No Tenderness; No Distention, No Hepatosplenomegaly Lymphatic: No Cervical Adenopathy Extremities: No Edema Skin: No Rash or Ulcers Neurological: Alert and Oriented x 3 Result Diagrams: 04/25/17 11:40 04/26/17 05:15 Additional Lab and Data: Lab Results 04/25/17 04/25/17 04/25/17 Range/Units 11:40 11:40 11:40 WBC 13.3 H (3.5-10.8) 10^3/ul RBC 4.71 (4.0-5.4) 10^6/ul Hgb 14.5 (14.0-18.0) g/dl Hct 43 (42-52) % MCV 91 (80-94) fL MCH 31 (27-31) pg MCHC 34 (31-36) g/dl RDW 13 (10.5-15) % Plt Count 214 (150-450) 10^3/ul MPV 10 (7.4-10.4) um3 Neut % (Auto) 80.6 (38-83) % Lymph % (Auto) 10.8 L (25-47) % [place] % (Auto) 7.8 (1-9) % Eos % (Auto) 0.3 (0-6) % Baso % (Auto) 0.5 (0-2) % Absolute Neuts (auto) 10.7 H (1.5-7.7) 10^3/ul Absolute Lymphs (auto) 1.4 (1.0-4.8) 10^3/ul Absolute Monos (auto) 1.0 H (0-0.8) 10^3/ul Absolute Eos (auto) 0 (0-0.6) 10^3/ul Absolute Basos (auto) 0.1 (0-0.2) 10^3/ul Absolute Nucleated RBC 0 10^3/ul Nucleated RBC % 0 INR (Anticoag Therapy) 0.90 (0.89-1.11) APTT 23.8 L (26.0-36.3) seconds Sodium 132 L (133-145) mmol/L Potassium 3.8 (3.5-5.0) mmol/L Chloride 102 (101-111) mmol/L Carbon Dioxide 20 L (22-32) mmol/L Anion Gap 10 (2-11) mmol/L BUN 13 (6-24) mg/dL Creatinine 1.05 (0.67-1.17) mg/dL Est GFR ( Amer) 91.2 (>60) Est GFR (Non-Af Amer) 70.9 (>60) BUN/Creatinine Ratio 12.4 (8-20) Glucose 320 H (70-100) mg/dL Lactic Acid (0.5-2.0) mmol/L Calcium 8.4 L (8.6-10.3) mg/dL Total Bilirubin 0.40 (0.2-1.0) mg/dL AST 41 H (13-39) U/L ALT 39 (7-52) U/L Alkaline Phosphatase 49 (34-104) U/L Total Creatine Kinase 66 (10-223) U/L CK-MB (CK-2) 1.8 (0.6-6.3) ng/mL Myoglobin 26.8 (17.4-105.7) ng/mL Troponin I 0.03 (<0.04) ng/mL B-Natriuretic Peptide ( - 100) pg/mL Total Protein 6.7 (6.4-8.9) g/dL Albumin 3.8 (3.2-5.2) g/dL Globulin 2.9 (2-4) g/dL Albumin/Globulin Ratio 1.3 (1-3) LDL Cholesterol Direct 158 mg/dL Urine Color Urine Appearance Urine pH (5-9) Ur Specific [place] (1.010-1.030) Urine Protein (Negative) Urine Ketones (Negative) Urine Blood (Negative) Urine Nitrate (Negative) Urine Bilirubin (Negative) Urine Urobilinogen (Negative) Ur Leukocyte Esterase (Negative) Urine Glucose (Negative) Blood Type Antibody Screen 04/25/17 04/25/17 04/25/17 Range/Units 11:40 11:40 11:40 WBC (3.5-10.8) 10^3/ul RBC (4.0-5.4) 10^6/ul Hgb (14.0-18.0) g/dl Hct (42-52) % MCV (80-94) fL MCH (27-31) pg MCHC (31-36) g/dl RDW (10.5-15) % Plt Count (150-450) 10^3/ul MPV (7.4-10.4) um3 Neut % (Auto) (38-83) % Lymph % (Auto) (25-47) % [place] % (Auto) (1-9) % Eos % (Auto) (0-6) % Baso % (Auto) (0-2) % Absolute Neuts (auto) (1.5-7.7) 10^3/ul Absolute Lymphs (auto) (1.0-4.8) 10^3/ul Absolute Monos (auto) (0-0.8) 10^3/ul Absolute Eos (auto) (0-0.6) 10^3/ul Absolute Basos (auto) (0-0.2) 10^3/ul Absolute Nucleated RBC 10^3/ul Nucleated RBC % INR (Anticoag Therapy) (0.89-1.11) APTT (26.0-36.3) seconds Sodium (133-145) mmol/L Potassium (3.5-5.0) mmol/L Chloride (101-111) mmol/L Carbon Dioxide (22-32) mmol/L Anion Gap (2-11) mmol/L BUN (6-24) mg/dL Creatinine (0.67-1.17) mg/dL Est GFR ( Amer) (>60) Est GFR (Non-Af Amer) (>60) BUN/Creatinine Ratio (8-20) Glucose (70-100) mg/dL Lactic Acid 3.6 H* (0.5-2.0) mmol/L Calcium (8.6-10.3) mg/dL Total Bilirubin (0.2-1.0) mg/dL AST (13-39) U/L ALT (7-52) U/L Alkaline Phosphatase (34-104) U/L Total Creatine Kinase (10-223) U/L CK-MB (CK-2) (0.6-6.3) ng/mL Myoglobin (17.4-105.7) ng/mL Troponin I (<0.04) ng/mL B-Natriuretic Peptide 20 ( - 100) pg/mL Total Protein (6.4-8.9) g/dL Albumin (3.2-5.2) g/dL Globulin (2-4) g/dL Albumin/Globulin Ratio (1-3) LDL Cholesterol Direct mg/dL Urine Color Urine Appearance Urine pH (5-9) Ur Specific [place] (1.010-1.030) Urine Protein (Negative) Urine Ketones (Negative) Urine Blood (Negative) Urine Nitrate (Negative) Urine Bilirubin (Negative) Urine Urobilinogen (Negative) Ur Leukocyte Esterase (Negative) Urine Glucose (Negative) Blood Type O Positive Antibody Screen Negative 04/25/17 Range/Units 12:02 WBC (3.5-10.8) 10^3/ul RBC (4.0-5.4) 10^6/ul Hgb (14.0-18.0) g/dl Hct (42-52) % MCV (80-94) fL MCH (27-31) pg MCHC (31-36) g/dl RDW (10.5-15) % Plt Count (150-450) 10^3/ul MPV (7.4-10.4) um3 Neut % (Auto) (38-83) % Lymph % (Auto) (25-47) % [place] % (Auto) (1-9) % Eos % (Auto) (0-6) % Baso % (Auto) (0-2) % Absolute Neuts (auto) (1.5-7.7) 10^3/ul Absolute Lymphs (auto) (1.0-4.8) 10^3/ul Absolute Monos (auto) (0-0.8) 10^3/ul Absolute Eos (auto) (0-0.6) 10^3/ul Absolute Basos (auto) (0-0.2) 10^3/ul Absolute Nucleated RBC 10^3/ul Nucleated RBC % INR (Anticoag Therapy) (0.89-1.11) APTT (26.0-36.3) seconds Sodium (133-145) mmol/L Potassium (3.5-5.0) mmol/L Chloride (101-111) mmol/L Carbon Dioxide (22-32) mmol/L Anion Gap (2-11) mmol/L BUN (6-24) mg/dL Creatinine (0.67-1.17) mg/dL Est GFR ( Amer) (>60) Est GFR (Non-Af Amer) (>60) BUN/Creatinine Ratio (8-20) Glucose (70-100) mg/dL Lactic Acid (0.5-2.0) mmol/L Calcium (8.6-10.3) mg/dL Total Bilirubin (0.2-1.0) mg/dL AST (13-39) U/L ALT (7-52) U/L Alkaline Phosphatase (34-104) U/L Total Creatine Kinase (10-223) U/L CK-MB (CK-2) (0.6-6.3) ng/mL Myoglobin (17.4-105.7) ng/mL Troponin I (<0.04) ng/mL B-Natriuretic Peptide ( - 100) pg/mL Total Protein (6.4-8.9) g/dL Albumin (3.2-5.2) g/dL Globulin (2-4) g/dL Albumin/Globulin Ratio (1-3) LDL Cholesterol Direct mg/dL Urine Color Straw Urine Appearance Clear Urine pH 7.0 (5-9) Ur Specific [place] 1.009 L (1.010-1.030) Urine Protein Negative (Negative) Urine Ketones Trace H (Negative) Urine Blood Negative (Negative) Urine Nitrate Negative (Negative) Urine Bilirubin Negative (Negative) Urine Urobilinogen Negative (Negative) Ur Leukocyte Esterase Negative (Negative) Urine Glucose 3+(>=500 mg/dl) H (Negative) Blood Type Antibody Screen Assess/Plan/Problems-Billing Assessment: 67 year s/p STEMI and stent placement and history of Diabetes and hyperlipidema - Patient Problems (1) STEMI (ST elevation myocardial infarction) Current Visit: Yes Status: Acute Code(s): I21.3 - ST ELEVATION (STEMI) MYOCARDIAL INFARCTION OF [facility] SITE SNOMED Code(s): 048550685 Comment: Doing well s/p cath and AGNES in RCA. On Brilinta, Lipitor, ASA and Metoprolol. Likely dc tomorrow AM (2) Diabetes Current Visit: Yes Status: Acute Code(s): E11.9 - TYPE 2 DIABETES MELLITUS WITHOUT COMPLICATIONS SNOMED Code(s): 69689799 Comment: FS a little better today. Issue will be on DC. Would like Hgb A1c to be closer to 6. I think Janumet may be a reasonable choice on discharge and I discussed it with the patient. I would start at 50/500 bid. He can then follow up with his PCP at the end of this month. (3) Hypertension Current Visit: Yes Status: Acute Code(s): I10 - ESSENTIAL (PRIMARY) HYPERTENSION SNOMED Code(s): 33080608 Comment: Excellent control. No change in rx. (4) Hyperlipidemia Current Visit: Yes Status: Acute Code(s): E78.5 - HYPERLIPIDEMIA, UNSPECIFIED SNOMED Code(s): 06903444 Comment: History of adverse GI consequences from Statins. May consider Niacin if he does not tolerate Lipitor again. (5) DVT prophylaxis Current Visit: Yes Status: Acute Code(s): QXM8865 - SNOMED Code(s): 473035160 Comment: Start heparin sub q when OK with cardiology (6) Full code status Current Visit: Yes Status: Acute Code(s): Z78.9 - OTHER SPECIFIED HEALTH STATUS SNOMED Code(s): 727594018
[2017-04-27] MEDS: Insulin LISPRO* 1 UNITS UNIT SUBCUT SCH ×4 (09:00→21:41)
[2017-04-27] MEDS: Atorvastatin* 80 MG TAB PO SCH (17:29)
[2017-04-27] MEDS: metFORMIN* 500 MG TAB PO SCH (21:41)
[2017-04-27] MEDS: SitaGLIPtin (NF) 25 MG TAB PO SCH (21:42)
[2017-04-28 08:08] VITALS: BP 134/77
[2017-04-28] MEDS: Aspirin Low Dose CHEW TAB* 81 MG PO SCH (08:16)
[2017-04-28] MEDS: Ticagrelor* 90 MG TAB PO SCH (08:16)
[2017-04-28] MEDS: Insulin LISPRO* 1 UNITS UNIT SUBCUT SCH (08:16)
[2017-04-28] MEDS: Metoprolol Tartrate TAB* 50 mg PO SCH (08:16)
[2017-04-28] MEDS: metFORMIN* 500 MG TAB PO SCH (08:16)
[2017-04-28] MEDS: SitaGLIPtin (NF) 25 MG TAB PO SCH (08:21)
[2017-04-28] MEDS ORDERED: Sitagliptin/Metform 50/500(NF) 1 TAB TAB PO SCH (09:00)
--- NOTE | 2017-04-28 09:34 | PN ---
Subjective Date of Service: 04/28/17 Interval History: Pt feels well. Ready to go home Objective Active Medications: Acetaminophen (Tylenol Tab*) 650 mg PO Q4H PRN PRN Reason: HEADACHE/PAIN Last Admin: 04/27/17 17:38 Dose: 650 mg Aspirin (Aspirin Low Dose Tab*) 81 mg PO DAILY [facility] Last Admin: 04/28/17 08:16 Dose: 81 mg Atorvastatin Calcium (Lipitor*) 80 mg PO 1700 [facility] Last Admin: 04/27/17 17:29 Dose: 80 mg Dextrose (D50w Syringe 50 Ml*) 12.5 gm IV PUSH .FOR FS < 60 - SS PRN PRN Reason: FS < 60 Insulin Human Lispro (Humalog*) 0 units SUBCUT ACHS [facility] PRN Reason: Protocol Last Admin: 04/28/17 08:16 Dose: 2 units Metformin HCl (Glucophage*) 500 mg PO BID [facility] Last Admin: 04/28/17 08:16 Dose: 500 mg Metoprolol Tartrate (Lopressor Tab*) 50 mg PO BID [facility] Last Admin: 04/28/17 08:16 Dose: 50 mg Nitroglycerin (Nitroglycerin Tab 0.4 Mg*) 0.4 mg SL Q5M PRN PRN Reason: ANGINA Oxycodone/Acetaminophen (Percocet 5/325 Tab*) 1 tab PO Q6H PRN PRN Reason: PAIN Last Admin: 04/25/17 20:03 Dose: 1 tab Prasugrel (Effient (Nf)) 10 mg PO DAILY [facility] Sitagliptin Phosphate (Januvia (Nf)) 50 mg PO BID [facility] Last Admin: 04/28/17 08:21 Dose: 50 mg Sitagliptin Phosphate/Metformin HCl (Janumet 50/500 (Nf)) 1 tab PO BID [facility] Last Admin: 04/28/17 08:41 Dose: Not Given Ticagrelor (Brilinta*) 90 mg PO BID [facility] Last Admin: 04/28/17 08:16 Dose: 90 mg Zolpidem Tartrate (Ambien Tab*) 5 mg PO BEDTIME PRN PRN Reason: SLEEP Last Admin: 04/25/17 22:02 Dose: 5 mg Vital Signs 04/27/17 04/27/17 04/27/17 11:23 15:14 20:00 Temperature 98.7 F 98.4 F Pulse Rate 79 Respiratory 16 16 Rate Blood Pressure 130/76 (mmHg) O2 Sat by Pulse 96 Oximetry 04/27/17 04/27/17 04/28/17 21:47 22:50 00:29 Temperature 98.4 F 97.7 F Pulse Rate 70 63 Respiratory 16 16 Rate Blood Pressure 112/67 104/66 (mmHg) O2 Sat by Pulse 95 97 Oximetry 04/28/17 04/28/17 04/28/17 03:36 06:55 08:07 Temperature 97.8 F 97.7 F Pulse Rate 64 66 Respiratory 16 16 16 Rate Blood Pressure 111/67 134/77 (mmHg) O2 Sat by Pulse 98 99 Oximetry Oxygen Devices in Use Now: None Appearance: 67 yo M in nAD, aAOx3 Eyes: No Scleral Icterus, PERRLA Ears/Nose/Mouth/Throat: NL Teeth, Lips, Gums, Mucous Membranes Moist Neck: NL Appearance and Movements; NL JVP, Trachea Midline Respiratory: Symmetrical Chest Expansion and Respiratory Effort, Clear to Auscultation Cardiovascular: NL Sounds; No Murmurs; No JVD, RRR Abdominal: NL Sounds; No Tenderness; No Distention Lymphatic: No Cervical Adenopathy Extremities: No Edema, No Clubbing, Cyanosis, - - r radial puncture site checked , good radial pulses b/l Skin: No Rash or Ulcers, No Nodules or Sclerosis Neurological: Alert and Oriented x 3, NL Muscle Strength and Tone Result Diagrams: 04/25/17 11:40 04/26/17 05:15 Additional Lab and Data: Lab Results 04/25/17 04/25/17 04/25/17 Range/Units 11:40 11:40 11:40 WBC 13.3 H (3.5-10.8) 10^3/ul RBC 4.71 (4.0-5.4) 10^6/ul Hgb 14.5 (14.0-18.0) g/dl Hct 43 (42-52) % MCV 91 (80-94) fL MCH 31 (27-31) pg MCHC 34 (31-36) g/dl RDW 13 (10.5-15) % Plt Count 214 (150-450) 10^3/ul MPV 10 (7.4-10.4) um3 Neut % (Auto) 80.6 (38-83) % Lymph % (Auto) 10.8 L (25-47) % [place] % (Auto) 7.8 (1-9) % Eos % (Auto) 0.3 (0-6) % Baso % (Auto) 0.5 (0-2) % Absolute Neuts (auto) 10.7 H (1.5-7.7) 10^3/ul Absolute Lymphs (auto) 1.4 (1.0-4.8) 10^3/ul Absolute Monos (auto) 1.0 H (0-0.8) 10^3/ul Absolute Eos (auto) 0 (0-0.6) 10^3/ul Absolute Basos (auto) 0.1 (0-0.2) 10^3/ul Absolute Nucleated RBC 0 10^3/ul Nucleated RBC % 0 INR (Anticoag Therapy) 0.90 (0.89-1.11) APTT 23.8 L (26.0-36.3) seconds Sodium 132 L (133-145) mmol/L Potassium 3.8 (3.5-5.0) mmol/L Chloride 102 (101-111) mmol/L Carbon Dioxide 20 L (22-32) mmol/L Anion Gap 10 (2-11) mmol/L BUN 13 (6-24) mg/dL Creatinine 1.05 (0.67-1.17) mg/dL Est GFR ( Amer) 91.2 (>60) Est GFR (Non-Af Amer) 70.9 (>60) BUN/Creatinine Ratio 12.4 (8-20) Glucose 320 H (70-100) mg/dL Lactic Acid (0.5-2.0) mmol/L Calcium 8.4 L (8.6-10.3) mg/dL Total Bilirubin 0.40 (0.2-1.0) mg/dL AST 41 H (13-39) U/L ALT 39 (7-52) U/L Alkaline Phosphatase 49 (34-104) U/L Total Creatine Kinase 66 (10-223) U/L CK-MB (CK-2) 1.8 (0.6-6.3) ng/mL Myoglobin 26.8 (17.4-105.7) ng/mL Troponin I 0.03 (<0.04) ng/mL B-Natriuretic Peptide ( - 100) pg/mL Total Protein 6.7 (6.4-8.9) g/dL Albumin 3.8 (3.2-5.2) g/dL Globulin 2.9 (2-4) g/dL Albumin/Globulin Ratio 1.3 (1-3) LDL Cholesterol Direct 158 mg/dL Urine Color Urine Appearance Urine pH (5-9) Ur Specific [place] (1.010-1.030) Urine Protein (Negative) Urine Ketones (Negative) Urine Blood (Negative) Urine Nitrate (Negative) Urine Bilirubin (Negative) Urine Urobilinogen (Negative) Ur Leukocyte Esterase (Negative) Urine Glucose (Negative) Blood Type Antibody Screen 04/25/17 04/25/17 04/25/17 Range/Units 11:40 11:40 11:40 WBC (3.5-10.8) 10^3/ul RBC (4.0-5.4) 10^6/ul Hgb (14.0-18.0) g/dl Hct (42-52) % MCV (80-94) fL MCH (27-31) pg MCHC (31-36) g/dl RDW (10.5-15) % Plt Count (150-450) 10^3/ul MPV (7.4-10.4) um3 Neut % (Auto) (38-83) % Lymph % (Auto) (25-47) % [place] % (Auto) (1-9) % Eos % (Auto) (0-6) % Baso % (Auto) (0-2) % Absolute Neuts (auto) (1.5-7.7) 10^3/ul Absolute Lymphs (auto) (1.0-4.8) 10^3/ul Absolute Monos (auto) (0-0.8) 10^3/ul Absolute Eos (auto) (0-0.6) 10^3/ul Absolute Basos (auto) (0-0.2) 10^3/ul Absolute Nucleated RBC 10^3/ul Nucleated RBC % INR (Anticoag Therapy) (0.89-1.11) APTT (26.0-36.3) seconds Sodium (133-145) mmol/L Potassium (3.5-5.0) mmol/L Chloride (101-111) mmol/L Carbon Dioxide (22-32) mmol/L Anion Gap (2-11) mmol/L BUN (6-24) mg/dL Creatinine (0.67-1.17) mg/dL Est GFR ( Amer) (>60) Est GFR (Non-Af Amer) (>60) BUN/Creatinine Ratio (8-20) Glucose (70-100) mg/dL Lactic Acid 3.6 H* (0.5-2.0) mmol/L Calcium (8.6-10.3) mg/dL Total Bilirubin (0.2-1.0) mg/dL AST (13-39) U/L ALT (7-52) U/L Alkaline Phosphatase (34-104) U/L Total Creatine Kinase (10-223) U/L CK-MB (CK-2) (0.6-6.3) ng/mL Myoglobin (17.4-105.7) ng/mL Troponin I (<0.04) ng/mL B-Natriuretic Peptide 20 ( - 100) pg/mL Total Protein (6.4-8.9) g/dL Albumin (3.2-5.2) g/dL Globulin (2-4) g/dL Albumin/Globulin Ratio (1-3) LDL Cholesterol Direct mg/dL Urine Color Urine Appearance Urine pH (5-9) Ur Specific [place] (1.010-1.030) Urine Protein (Negative) Urine Ketones (Negative) Urine Blood (Negative) Urine Nitrate (Negative) Urine Bilirubin (Negative) Urine Urobilinogen (Negative) Ur Leukocyte Esterase (Negative) Urine Glucose (Negative) Blood Type O Positive Antibody Screen Negative 04/25/17 Range/Units 12:02 WBC (3.5-10.8) 10^3/ul RBC (4.0-5.4) 10^6/ul Hgb (14.0-18.0) g/dl Hct (42-52) % MCV (80-94) fL MCH (27-31) pg MCHC (31-36) g/dl RDW (10.5-15) % Plt Count (150-450) 10^3/ul MPV (7.4-10.4) um3 Neut % (Auto) (38-83) % Lymph % (Auto) (25-47) % [place] % (Auto) (1-9) % Eos % (Auto) (0-6) % Baso % (Auto) (0-2) % Absolute Neuts (auto) (1.5-7.7) 10^3/ul Absolute Lymphs (auto) (1.0-4.8) 10^3/ul Absolute Monos (auto) (0-0.8) 10^3/ul Absolute Eos (auto) (0-0.6) 10^3/ul Absolute Basos (auto) (0-0.2) 10^3/ul Absolute Nucleated RBC 10^3/ul Nucleated RBC % INR (Anticoag Therapy) (0.89-1.11) APTT (26.0-36.3) seconds Sodium (133-145) mmol/L Potassium (3.5-5.0) mmol/L Chloride (101-111) mmol/L Carbon Dioxide (22-32) mmol/L Anion Gap (2-11) mmol/L BUN (6-24) mg/dL Creatinine (0.67-1.17) mg/dL Est GFR ( Amer) (>60) Est GFR (Non-Af Amer) (>60) BUN/Creatinine Ratio (8-20) Glucose (70-100) mg/dL Lactic Acid (0.5-2.0) mmol/L Calcium (8.6-10.3) mg/dL Total Bilirubin (0.2-1.0) mg/dL AST (13-39) U/L ALT (7-52) U/L Alkaline Phosphatase (34-104) U/L Total Creatine Kinase (10-223) U/L CK-MB (CK-2) (0.6-6.3) ng/mL Myoglobin (17.4-105.7) ng/mL Troponin I (<0.04) ng/mL B-Natriuretic Peptide ( - 100) pg/mL Total Protein (6.4-8.9) g/dL Albumin (3.2-5.2) g/dL Globulin (2-4) g/dL Albumin/Globulin Ratio (1-3) LDL Cholesterol Direct mg/dL Urine Color Straw Urine Appearance Clear Urine pH 7.0 (5-9) Ur Specific [place] 1.009 L (1.010-1.030) Urine Protein Negative (Negative) Urine Ketones Trace H (Negative) Urine Blood Negative (Negative) Urine Nitrate Negative (Negative) Urine Bilirubin Negative (Negative) Urine Urobilinogen Negative (Negative) Ur Leukocyte Esterase Negative (Negative) Urine Glucose 3+(>=500 mg/dl) H (Negative) Blood Type Antibody Screen Assess/Plan/Problems-Billing Assessment: 67 year s/p STEMI and stent placement and history of Diabetes and hyperlipidema - Patient Problems (1) STEMI (ST elevation myocardial infarction) Comment: Doing well s/p cath and AGNES in RCA. cont Effient , Lipitor, ASA and Metoprolol. d/c today. Meds sent electronically and confirmed with [facility] pharmacy in [place]. (2) Diabetes Comment: D/c on . Disontinued glipizide due to occasional hypoglycemia at home. (3) Hyperlipidemia Comment: History of adverse GI consequences from Statins. May consider Niacin if he does not tolerate Lipitor again. (4) Hypertension Comment: Excellent control. No change in rx. Status and Disposition: D/c home today as per cardiology
--- NOTE | 2017-04-28 10:38 | DS ---
CC: Dr. Valentino Carter, [place], [place]; George Ferrell RPA-Licha, [place], [place]; Dr. Sylwia Jean, [facility]* DISCHARGE SUMMARY: DATE OF ADMISSION: 04/25/17 DATE OF DISCHARGE: 04/28/17 FINAL DIAGNOSIS: Acute ST-segment elevation inferior wall myocardial infarction. SECONDARY DIAGNOSES: Include: 1. Coronary artery disease. 2. Hypertension. 3. Hyperlipidemia. 4. [id number] diabetes mellitus. HOSPITAL COURSE: The patient is a pleasant 67-year-old gentleman, who presented to [facility] in the throes of an acute ST-segment elevation inferior wall myocardial infarction on 04/25/17. Please refer to Dr. Jean' H and P for complete details. He was brought emergently to the cardiovascular laboratory where cardiac catheterization was performed. Cardiac catheterization revealed the right coronary artery to be totally occluded a few centimeters after its origin adjacent to a side branch. The vessel after it was intervened on revealed filling of an acute marginal branch, which supplied a short distance of the distal inferior septal region. The PDA was a relatively small vessel followed by 2 moderate-sized posterolateral branches. The right coronary artery distal had minor luminal irregularities with TIMOTEO-3 flow and normal blush after stent placement. Left main had no significant stenosis. The LAD was a large vessel extending past the apex supplying a small first diagonal branch with minor proximal luminal irregularities and a small-to- moderate second diagonal branch with minor proximal irregularities. There was no significant stenosis throughout the body of the LAD. The circumflex was a nondominant, relatively small caliber vessel in a small distribution. The proximal circumflex had a segment of 25% to 30% diffuse plaquing up to 70% stenosis. Left ventriculogram showed the inferior wall to move relatively normal with an EF of 55%. The patient underwent successful intervention with placement of a 2.75 x 38 mm long Synergy drug-eluting stent. Post procedure, the patient did well. His cardiac enzymes on admission showed a troponin of 0.03 with a subsequent troponin to greater than 74. The total CPKs appeared to peak at 1524. Throughout the hospital course, his BUN and creatinine were normal. During the hospitalization, he was seen in consultation by Dr. Syed Galeana, one of the hospitalists for diabetic management, who adjusted medications appropriately. Thomas was up and about without provoking any significant chest, throat, jaw, or arm discomfort. PHYSICAL EXAMINATION: On the day of discharge, vital signs revealed a blood pressure of 111/67 with a pulse of 64, respirations 16, O2 saturation 98% on room air. Neck was supple with no increased JVP. Carotid with good upstroke and volume without bruits. HEENT: Conjunctivae pink. Sclerae clear. Lungs: Revealed no accessory muscle usage. There is good excursion. The lungs are clear. Heart: Revealed no visible heaves. No palpable heaves or thrills. Normal S1 and S2. No significant S3, S4, gallop. No significant systolic murmur or rub present. Abdomen is soft, nontender. Extremities without edema. The right radial artery had minimal ecchymosis with well-healed good antegrade flow was noted down the radial artery. Neuro: The patient was alert and oriented with normal mentation. Musculoskeletal: The patient with normal gait. Psychiatric: The patient with normal affect. DIAGNOSTIC STUDIES: Electrocardiogram performed on 04/28/17 revealed sinus rhythm, heart rate 64, normal MT, QRS, and QT interval. T-wave inversions were seen in II, III, aVF. There was preserved R wave in II with a minimal Q-wave. There was a Q wave in lead III and a very small R wave and Q wave in aVF. R was greater than S in V2, counterclockwise progression, raising question of possible posterior involvement. Subtle biphasic T waves in V6 were seen. MEDICATIONS: At the time of discharge, medications included: 1. Atorvastatin 80 mg a day. 2. Aspirin 81 mg a day. 3. Metoprolol tartrate 50 mg twice a day. 4. Nitroglycerin sublingual 0.4 mg a day. 5. Prasugrel 10 mg a day starting tomorrow, Thursday; he will be taking a 60 mg loading dose tonight. 6. He will be on Janumet 50/500 mg 1 twice a day. FOLLOWUP: He will be seen by myself in followup next week for Dr. Jean, who is on vacation. I have asked them to set up an appointment to see Dr. Valentino Carter in the next couple of weeks and he states he has an appointment with him next week. He was given an education booklet in addition to prasugrel card for buying his prasugrel medications. His stent card was already given to him by Dr. Jean. I answered all of his questions to his satisfaction. [id number]/[facility] #: [id number] [place]
[2017-04-29] MEDS ORDERED: Prasugrel (NF) 10 MG PO SCH (09:00)
== END 2017-04-28 10:50 | disposition home or self-care (01) | DRG 247 ==
LOC: ED 11:34 → CHICARD 12:29 → CHICATH 12:29 → ICU 13:25 → MEDTELE 04-27 14:36
PROVIDERS: ADMIT Internal Medicine Cardiovascular Disease; ATTEND Internal Medicine Cardiovascular Disease
PROC: 027034Z Dilation of Coronary Artery, One Artery with Drug-eluting Intraluminal Device, Percutaneous Approach (ICD-10-PCS; 2017-04-25)
PROC: B2111ZZ Fluoroscopy of Multiple Coronary Arteries using Low Osmolar Contrast (ICD-10-PCS; 2017-04-25)
PROC: B2151ZZ Fluoroscopy of Left Heart using Low Osmolar Contrast (ICD-10-PCS; 2017-04-25)
PROC: 4A023N7 Measurement of Cardiac Sampling and Pressure, Left Heart, Percutaneous Approach (ICD-10-PCS; principal; 2017-04-25 12:00)
DX: I21.19 ST elevation (STEMI) myocardial infarction involving other coronary artery of inferior wall (principal); E11.65 Type 2 diabetes mellitus with hyperglycemia; I10 Essential (primary) hypertension; E78.5 Hyperlipidemia, unspecified; I25.10 Atherosclerotic heart disease of native coronary artery without angina pectoris; Z79.82 Long term (current) use of aspirin; Z79.84 Long term (current) use of oral hypoglycemic drugs; Z88.8 Allergy status to other drugs, medicaments and biological substances; Z82.49 Family history of ischemic heart disease and other diseases of the circulatory system; F17.290 Nicotine dependence, other tobacco product, uncomplicated; Z83.3 Family history of diabetes mellitus; K21.9 Gastro-esophageal reflux disease without esophagitis; Z90.49 Acquired absence of other specified parts of digestive tract
CPT/HCPCS: 36415; 71010; 80048; 80053; 81003; 82550; 82553; 82947; 83036; 83605; 83721; 83874; 83880; 84484; 85025; 85610; 85730; 86850; 86900; 86901; 93005; 94760; 99406; A9270-GY; C1725; C1769; C1876; C1887; C9606-RC; J1644; J2001; J2250; J2270; J3010